=== PATIENT | male | born 1935 | race Caucasian/White ===

== ENCOUNTER → 2017-12-28 17:00 | Outpatient (REF) | payer SELFPAY ==
[2017-12-29 08:30] LABS: Bacteria 0 SEEN /hpf (None Seen); Mucous, Urine 0 SEEN /hpf (<or=2+); Red Blood Cells-Urine 0 SEEN /hpf (0-5)
[2017-12-29 09:08] LABS: Color, Urine Yellow (Yellow); Glucose, Dipstick Normal (Normal); Ketone-Dipstick Negative (Negative); Leukocyte Esterase-Dipstick 500 /ul (Negative); Nitrite-Dipstick Negative (Negative); Occult Blood-Urine Negative /ul (Negative); Protein-Dipstick Negative (Negative); Urine Bilirubin Dipstick Negative (Negative); Urine Clarity Clear (Clear); Urine Urobilinogen Normal (Normal); Urine pH 6.5 (5.0 - 8.0)
[2017-12-29 09:37] LABS: Squamous Epithelial Cells - UA 0-5 SEEN /hpf (0-5); White Blood Cells 0-5 SEEN /hpf (0-5)
== END ==
LOC: OLS.AVEB 17:00
PROVIDERS: Visit Provider Family Medicine
DX: N39.0 Urinary tract infection, site not specified (principal)
CPT/HCPCS: 81001; 87077; 87086; 87088

== ENCOUNTER → 2017-12-29 13:31 | Outpatient (CLI) | payer MEDICARE, OTHER, SELFPAY ==
--- NOTE | 2017-12-29 13:42 | VDLE_ITS ---
Reason For Study: Localized Edema RIGHT LEFT GSV is normal. CFV is compressible, spontaneous, phasic, Rt CFV, Rt FV, Rt PopV, Rt T/P Trunk, Rt competent, and demonstrates normal GastrocV, Rt PTV, and Rt PeroV are dilated augmentation. and non compressible consistent with acute DVT. Procedure Exam performed in department. Pt sent to ED per Dr. Scott. A preliminary report was called and/or faxed to Denisha Maloney RN. Interpretation Summary Acute deep vein thrombosis is noted in the right common femoral vein. Acute deep vein thrombosis is noted in the right femoral vein. Acute deep vein thrombosis is noted in the right popliteal vein. Acute deep vein thrombosis is noted in the right tibio-peroneal trunk. Acute deep vein thrombosis is noted in the right posterior tibial vein. Acute deep vein thrombosis is noted in the right peroneal vein. Acute deep vein thrombosis is noted in the right gastrocnemius vein. The right greater saphenous vein appears patent and compressible segmentally. Ordering Physician: Donte Scott Referring Physician: DOCTOR, OUT OF TOWN Performed By: Pari Montanez, RIZWANA, RVT
== END ==
DX: R60.0 Localized edema (principal); S72.21XA Displaced subtrochanteric fracture of right femur, initial encounter for closed fracture
CPT/HCPCS: 93971

== ENCOUNTER 2017-12-29 14:36 | Inpatient (IN) | payer MEDICARE, OTHER, SELFPAY ==
[2017-12-29] VITALS (7 sets, daily range): BP systolic 95–117; BP diastolic 61–72; PULSE 73–93; RESP 16–20; TEMP 36.4–37.2; O2SAT 95–99; BMI 27.8; BMI 28.5
--- NOTE | 2017-12-29 15:20 | ED.VISSUMM ---
- ER Visit Summary Date of Service: 12/29/17 Chief Complaint: Right leg swelling History of Present Illness: The patient is a 82 M status post right proximal femur fracture with orthopedic repair first week of October. That was done in [facility]. Last several weeks that he has had increasing swelling in his right lower leg intermittent discomfort. He had an ultrasound done earlier today here at [place] as an outpatient which showed right common femoral, right femoral, right popliteal, right gastric and other veins that were dilated consistent with a DVT. He denies any chest pain or shortness of breath. He is on Coumadin and has been long-term for history of A. fib. He denies any hemoptysis. Physical Examination: Elderly male no acute distress vital signs are stable. He is afebrile with a pulse ox 90% on room air no signs of hypoxia. H EENT exam is unremarkable. Neck nontender. Lungs coarse breath sounds bilaterally. No rales or rhonchi. Heart irregularly irregular rate about 90. Abdomen soft nontender. He is moving all 4 extremities. He has 1-2+ pitting edema in the right lower extremity. Dorsi and plantar flexion intact. Neurologically is awake and alert. He is following commands. Test Results: Patient has already had an outpatient noninvasive study of the right lower extremity which demonstrates an extensive DVT in spite of being on Coumadin therapy. White count of 6 H&H 10 and 33 which is his baseline anemia. Electrolytes unremarkable creatinine 0.9. Normal gap. He is currently on Coumadin his INR is 2.0. Emergency Department Course and Treatment: Screening labs to be obtained and then I will discuss the options since the patient has a DVT in spite of being on anticoagulation. Treatment Plan: I have already spoken to the hospitalist. In light that the patient has a large DVT and is still been on anticoagulation therapy I think he needs more aggressive therapy possibly vascular surgery consultation and discussion of whether they feel a filter placement would be necessary or beneficial or not. Disposition: Admission Impression: Acute extensive right lower extremity DVT History of A. fib on Coumadin Status post right proximal femur fracture with orthopedic repair This note was generated with [employer] dictation software. It may contain incorrect words, spelling, and punctuation that were not noted in review of the chart prior to signing ED Disposition - Plan for ED Patient: Chief Complaint: Lower Extremity Injury Referrals: [facility] Doctor,Out of [NON-STAFF] -
[2017-12-29 15:46] LABS: Absolute Lymphocyte Count 1.77 X10^3/ul (0.83-4.51); Absolute Neutrophil Count 3.9 X10^3/uL (2.0-7.7); Basophil# 0.01 X10^3/uL; Basophil% 0.2 % (0-1); Eosinophil# 0.15 X10^3/uL; Eosinophils% 2.3 % (0-5); Hematocrit 33.1 % (40-54); Hemoglobin 10.5 g/dl (13.0-16.5); Lymphocyte # 1.77 X10^3/ul (4.0); Lymphocyte % 27.1 % (19-41); Mean Corp Hgb Conc 31.7 g/gl (32-36); Mean Corpuscular Hgb 32.5 pg (27.0-32.0); Mean Corpuscular Volume 102.5 fL (80-94); Mean Platelet Vol. 8.8 fl (6.2-12.0); Monocyte# 0.73 X10^3/uL; Monocyte% 11.2 % (0-10); Neutrophil # 3.85 X10^3/uL (2.7-7.7); Neutrophil % 58.9 % (47-70); Platelet Count 203 K/mm3 (150-450); RBC Distribution Width CV 13.6 % (11.6-14.6); RBC Distribution Width SD 50.9 fl (35.1-43.9); Red Blood Count 3.23 M/mm3 (4.6-6.2); White Blood Count 6.5 K/mm3 (4.4-11.0)
[2017-12-29 15:47] LABS: POSITIVE COUNT NO; POSITIVE DIFFERENTIAL NO; POSITIVE MORPHOLOGY NO
[2017-12-29 15:59] LABS: Anion Gap 5 (5-15); BUN 16 mg/dL (7-18); BUN/Creat Ratio 17.8 RATIO (10-20); Calcium,Total 8.7 mg/dL (8.5-10.1); Chloride 102 mmol/L (98-107); EST Glomerular Filtration Rate 86 mL/min (>60); Est Glom Filt Rate - Afr Amer 104 mL/min (>60); Estimated Creatinine Clearance 70.65 ml/min; Glucose 123 mg/dL (74-106); Potassium 3.8 mmol/L (3.5-5.1); Sodium Level 140 mmol/L (136-145)
[2017-12-29 16:15] LABS: Prothrombin Time (Protime)PT. 22.8 SECONDS (11.7-14.9)
--- NOTE | 2017-12-29 17:35 | NURSING ---
report called back to care facility. chio Alexander was updated on pt.
[2017-12-29 18:31] LABS: Partial Thromboplast Time 39.9 Seconds (24.1-36.2)
--- NOTE | 2017-12-29 19:21 | PCM.HP.STD ---
Problem List (1) Right leg DVT Status: Acute Qualifiers: Affected thrombotic vein of extremity: femoral Chronicity: acute Qualified Code(s): I82.411 - Acute embolism and thrombosis of right femoral vein History of Present Illness Date of Admission: 12/29/17 Chief Complaint: right leg swelling 82 year old male with a h/o atrial fibrillation on chronic anticoagulation with warfarin who recently underwent ORIF for right proximal femoral fracture. Warfarin was held at the time perioperatively but resumed about 2 days afterwards. Patient was discharged to acute rehab but due to inability to participate in required therapy was discharged to a SNF. For about past 1-2 weeks swelling of the right leg has been noticed with associated discomfort and heaviness of the affected leg. Today had outpatient US which showed very extensive DVT from common femoral all the way down to the calf and leg veins. INR noted to be 2.0 and patient has been compliant with warfarin. Daughter who is in the room with patient has noticed patient not quite able to participate in therapy and unable to bear weight on the RLE. Patient denies any SOB or chest pain or dizziness Past Medical History Medical History: Medical History (Last Updated 12/29/17 @ 19:30 by Jose Peguero MD) Prostate cancer C61 Right femoral fracture S72.91XA Urinary incontinence R32 Allergies meloxicam Allergy (Verified 12/29/17 14:38) Other Home Medications: Ambulatory Orders Medication Instructions Recorded Albuterol IH (ProAir) [Proair Hfa] 2 inh INHALATION Q4H PRN PRN 12/29/17 Aspirin [Aspirin, Baby] 81 mg PO DAILY 12/29/17 Azelastine HCl [Astelin] 1 spray NASAL PRN PRN 12/29/17 Bumetanide [Bumex] 1 mg PO DAILY 12/29/17 Clotrimazole/Betamethasone 1 applic TOPICAL PRN PRN 12/29/17 [Lotrisone] Diltiazem [Cardizem] 60 mg PO BID 12/29/17 Docusate Sodium [Colace] 100 mg PO DAILY 12/29/17 Gabapentin [Neurontin] 100 mg PO TIDCM 12/29/17 Hydrocodone/Acetaminophen [[place] 1 each PO Q6H PRN PRN 12/29/17 10-325 Tablet] Lansoprazole [Lansoprazole] 30 mg PO DAILY 12/29/17 Melatonin/Pyridoxine HCl (B6) 1 tab PO QHS 12/29/17 [Melatonin 1 mg Tablet] Metformin HCl 500 mg PO DAILY 12/29/17 Metoprolol Tartrate [Lopressor 50 mg PO DAILY 12/29/17 (beta amna)] Omega3/Dha/Epa/Fish Oil/Vit D3 1 capsule PO DAILY 12/29/17 [Fish Oil-Vit D3 Softgel] Polyethylene Glycol 3350 [Miralax] 17 gm PO DAILY 12/29/17 Simvastatin [Zocor] 20 mg PO DAILY 12/29/17 Warfarin Sodium [Warfarin Sodium] 3 mg PO MOTUWETHFRSA 12/29/17 Warfarin Sodium [Warfarin Sodium] 4.5 mg PO ESPANA 12/29/17 Lives: With Family Smoking Status: Former smoker Tobacco Use: Cigars, Pipe Review of Systems Constitutional: Reports: Weakness, Fatigue. Denies: Anorexia, Malaise Eyes: Reports: Blurred vision, Double vision HEENT: Reports: Head Aches Cardiovascular: Reports: Edema. Denies: Chest Pain, Chest Pressure, Chest Tightness, Light Headedness Respiratory: Denies: Cough, Pleuritic Pain, Shortness of breath upon exertion Gastrointestinal: Denies: Abdominal Pain, Constipation Genitourinary: Reports: Frequency, Incontinence Musculoskeletal: Reports: Leg Pain Skin: Reports: Skin Changes - ecchymoses Neurological: Reports: Balance problems, - - Propensity for falls, slowness, occasional coarse resting tremors, shuffling gait Psychiatric: Denies: Anxiety Hematologic/ Lymphatic: Reports: Easy Bruising, Purpura. Denies: Adenopathy VTE Information - Inpt Only VTE Present on Admission: No Patient Problems: Active and Suspected Problems (Last Updated 12/29/17 @ 19:30 by Jose Peguero MD) Right leg DVT (Acute) - Physical Exam General: Alert, Oriented x3, Cooperative, No apparent distress, - - mask like facies HEENT: Atraumatic, Normocephalic Oral: Dry Mucosa Neck: Supple, No JVD Lungs: Clear to auscultation, Normal air movement, No rhonchi, No wheeze, No rales Cardiovascular: Regular rate, Regular Rhythm, Normal S1, Normal S2, No murmurs, No Ectopic Activity Abdomen: Soft, Non Tender, Non-Distended, No Hepato-splenomegaly Extremities: - - both LE with edema but right leg markedly so from foot all the way up to groin Skin: - - ecchymoses on UEs Lymphatic: No Cervical, Supraclavicular, or Inguinal Adenopathy Neurological: Cranial nerves II-XII grossly intact, - - psychomotor retardation, glabellar sign negative, tone increased in both UEs, R>L with mild cogwheeling R>L, mask like facies Psych/Mental Status: Flat Affect Vital Signs Temp Pulse Resp BP Pulse Ox 98.9 F 88 16 98/63 95 12/29/17 17:50 12/29/17 17:55 12/29/17 17:50 12/29/17 17:50 12/29/17 17:50 Oxygen Delivery Method Room Air Weight: 95.6 kg Body Mass Index (BMI) 28.5 Assessment/Plan All Active Problems (Last Updated 12/29/17 @ 19:30 by Jose Peguero MD) Right leg DVT (Acute) 1. Acute extensive right LE DVT despite being apparently adequately anticoagulated on warfarin. Risk factors - recent surgery to the same Rt femur and immobility following surgery. Will start on HBW and consult vascular surgery. May be a candidate for thrombectomy. 2. Suspect Parkinson's disease or Parkinson's plus syndrome. Features are subtle. May be the reason for patient not being able to participate in therapy. Will consult neurology to evaluate. 3. Atrial fibrillation. 4. recent severe delirium during recent hospitalization Code Visit Inpatient E&M: 48618 Init Hosp L3
[2017-12-29] MEDS: HYDROcodone Bitartrate/Apap 5/325 Tablet PO (19:27)
[2017-12-29] MEDS: Albuterol 2.5 MG/3 ML VIAL.NEB. INHALATION (20:10)
[2017-12-29] MEDS: Metoprolol Tartrate 50 MG Tablet PO (21:08)
[2017-12-29] MEDS: Atorvastatin Calcium 10 MG Tablet PO (21:08)
[2017-12-29] MEDS: dilTIAZem 60 MG Tablet PO (21:08)
[2017-12-30 01:28] LABS: Partial Thromboplast Time 206.6 Seconds (24.1-36.2)
--- NOTE | 2017-12-30 01:30 | NURSING ---
heparin drip off per protocol
[2017-12-30] MEDS: HYDROcodone Bitartrate/Apap 5/325 Tablet PO ×2 (02:43→21:26)
[2017-12-30 02:56] VITALS: BP 153/100; PULSE 91; RESP 20; TEMP 37; O2SAT 97
--- NOTE | 2017-12-30 05:43 | NURSING ---
PT BECOMING VERY ANXIOUS. URINE SMELLED STRONG. UA SENT. C/O SOUR STOMACH. MARISSA BEHZAD GIVEN.
[2017-12-30 06:08] LABS: Color, Urine Yellow (Yellow); Glucose, Dipstick Normal (Normal); Ketone-Dipstick 5 mg/dl (Negative); Leukocyte Esterase-Dipstick 500 /ul (Negative); Nitrite-Dipstick Negative (Negative); Occult Blood-Urine 10 /ul (Negative); Protein-Dipstick 15 mg/dl (Negative); Specific Gravity, Urine 1.015 (1.002-1.030); Urine Bilirubin Dipstick Negative (Negative); Urine Clarity Cloudy (Clear); Urine Urobilinogen 4 mg/dl (Normal); Urine pH 6.5 (5.0 - 8.0)
[2017-12-30 06:43] LABS: Mucous, Urine 0 SEEN /hpf (<or=2+); Red Blood Cells-Urine 0 SEEN /hpf (0-5); Squamous Epithelial Cells - UA 0 SEEN /hpf (0-5)
[2017-12-30 06:56] LABS: White Blood Cells 10-25 SEEN /hpf (0-5)
[2017-12-30 06:57] LABS: Bacteria 3+ /hpf (None Seen)
[2017-12-30 07:33] LABS: Absolute Lymphocyte Count 1.63 X10^3/ul (0.83-4.51); Absolute Neutrophil Count 4.5 X10^3/uL (2.0-7.7); Basophil# 0.03 X10^3/uL; Basophil% 0.4 % (0-1); Eosinophil# 0.07 X10^3/uL; Hematocrit 29.6 % (40-54); Hemoglobin 9.5 g/dl (13.0-16.5); Lymphocyte # 1.63 X10^3/ul (4.0); Lymphocyte % 24.2 % (19-41); Mean Corp Hgb Conc 32.1 g/gl (32-36); Mean Corpuscular Hgb 32.8 pg (27.0-32.0); Mean Corpuscular Volume 102.1 fL (80-94); Mean Platelet Vol. 8.9 fl (6.2-12.0); Monocyte% 7.4 % (0-10); Neutrophil # 4.49 X10^3/uL (2.7-7.7); Neutrophil % 66.7 % (47-70); POSITIVE COUNT NO; POSITIVE DIFFERENTIAL NO; POSITIVE MORPHOLOGY NO; Platelet Count 185 K/mm3 (150-450); RBC Distribution Width CV 13.3 % (11.6-14.6); White Blood Count 6.7 K/mm3 (4.4-11.0)
[2017-12-30 07:39] LABS: Anion Gap 4 (5-15); BUN 16 mg/dL (7-18); BUN/Creat Ratio 19.3 RATIO (10-20); Calcium,Total 8.3 mg/dL (8.5-10.1); Chloride 106 mmol/L (98-107); Creatinine, Serum 0.83 mg/dL (0.70-1.30); EST Glomerular Filtration Rate 94 mL/min (>60); Est Glom Filt Rate - Afr Amer 114 mL/min (>60); Estimated Creatinine Clearance 76.61 ml/min; Glucose 155 mg/dL (74-106); Potassium 3.6 mmol/L (3.5-5.1); Sodium Level 142 mmol/L (136-145)
[2017-12-30 07:40] LABS: Prothrombin Time (Protime)PT. 22.8 SECONDS (11.7-14.9)
--- NOTE | 2017-12-30 08:14 | NURSING ---
DR NAVAS ANSWERING SERVICE NOTIFIED THAT HE WAS CONSULTED BY DR FORD. PT HAS EXTENSIVE DVT.
[2017-12-30 08:48] VITALS: BP 114/80; PULSE 70; PULSE 85; RESP 20; TEMP 36.9; O2SAT 99
[2017-12-30] MEDS: 0.9% NaCl Peripheral Flush Adult/Peds IV (09:14)
[2017-12-30] MEDS: Ondansetron 4 MG/2 ML Vial IV (09:14)
[2017-12-30] MEDS: Bumetanide 0.5 MG Tablet 1 MG PO (09:15)
[2017-12-30 09:19] VITALS: PULSE 85
[2017-12-30] MEDS: Metoprolol Tartrate 50 MG Tablet PO ×2 (09:19→21:22)
[2017-12-30] MEDS: Gabapentin 100 MG Capsule PO ×3 (09:19→16:57)
[2017-12-30] MEDS: dilTIAZem 60 MG Tablet PO ×2 (09:20→21:22)
--- NOTE | 2017-12-30 09:30 | NURSING ---
called Lab talked w/ Ra as PTT still pending from 07:10
[2017-12-30 09:53] LABS: Partial Thromboplast Time 85.1 Seconds (24.1-36.2)
[2017-12-30] MEDS: Polyethylene Glycol 3350 17 GM PACKET PO (10:56)
[2017-12-30] MEDS: Pantoprazole Sodium 40 MG Tablet PO (10:57)
--- NOTE | 2017-12-30 12:01 | PCM.PN.HOSP ---
Patient Problems: Active and Suspected Problems (Last Updated 12/29/17 @ 19:30 by Jose Peguero MD) Right leg DVT (Acute) Subjective: 82 y/o male with a history of atrial fibrillation, on chronic anticoagulation, prostate cancer and recent right femoral fracture s/p ORIF. Coumadin was held at time of surgery preoperatively and resume 2 days afterwards. He was discharged to acute rehab was unable to partake in physical therapy. He was noted to have right lower extremity swelling for 1-2 weeks duration. He had outpatient ultrasound of the right lower extremity which revealed extensive DVT from common femoral down to the cough and neck veins. INR was noted to be 2 and patient has been compliant with Coumadin. Patient was admitted and is being managed for acute DVT of the right lower extremity likely provoked by surgery. He was started on heparin drip, coumadin is on hold, and vascular surgery has been consulted. Patient seen and examined. He had no complaints and did seem a little bit confused. He was however able to give answers when asked. Did not have any chest pain, shortness of breath, abdominal pain and he said the swelling in his lower extremity was the same. He did admit to having pain in his right lower extremity. Review of systems otherwise negative. Vitals reviewed. Vitals/I&O's: Vital Signs Temp Pulse Resp BP Pulse Ox 98.5 F 85 20 H 114/80 99 12/30/17 08:48 12/30/17 09:19 12/30/17 08:48 12/30/17 08:48 12/30/17 08:48 Oxygen Delivery Method Room Air Weight: 210 lb 12.191 oz Body Mass Index (BMI) 28.5 Intake and Output for Last 24 Hours 12/28/17 12/29/17 12/30/17 23:59 23:59 23:59 Intake Total 120 / 120 103 / 103 Output Total 150 / 150 Balance 120 / 120 -47 / -47 General: Alert, Oriented x3, Cooperative, No apparent distress HEENT: Atraumatic, PERRLA, EOMI, Normocephalic Oral: Moist Mucosa Neck: Supple, No JVD, Negative Carotid Bruits Lungs: Clear to auscultation, Normal air movement, No rhonchi, No wheeze, No rales Cardiovascular: Regular rate, Regular Rhythm, Normal S1, Normal S2, No murmurs Abdomen: Bowel Sounds Present, Soft, Non Tender, Non-Distended, No Hepato-splenomegaly Extremities: - - both LEs in STACEY hoses. RLE swollen, tender and warm to touch. Skin: No rashes, No breakdown Musculoskeletal: No Tenderness to Palpation of Joints or Extremities Lymphatic: No Cervical, Supraclavicular, or Inguinal Adenopathy Neurological: Cranial nerves II-XII grossly intact, Neuro grossly intact Psych/Mental Status: Normal Affect, Appropriate, - - alert and oriented to person and place Laboratory Results 12/30/17 01:04: APTT 206.6 H* 12/30/17 05:40: Urine Color Yellow, Urine Clarity Cloudy, Urine pH 6.5, Ur Specific [place] 1.015, Urine Protein 15 H, Urine Glucose (UA) Normal, Urine Ketones 5 H, Urine Occult Blood 10 H, Urine Nitrite Negative, Urine Bilirubin Negative, Urine Urobilinogen 4 H, Ur Leukocyte Esterase 500 H, Urine RBC 0 SEEN, Urine WBC 10-25 SEEN, Ur Squamous Epith Cells 0 SEEN, Urine Bacteria 3+, Urine Mucus 0 SEEN 12/30/17 05:40: Urine Color Cancelled, Urine Clarity Cancelled, Urine pH Cancelled, Ur Specific [place] Cancelled, U Specif Grav (Refrac) Cancelled, Urine Protein Cancelled, Urine Glucose (UA) Cancelled, Urine Ketones Cancelled, Urine Occult Blood Cancelled, Urine Nitrite Cancelled, Urine Bilirubin Cancelled, Urine Urobilinogen Cancelled, Ur Leukocyte Esterase Cancelled, Urine RBC Cancelled, Urine WBC Cancelled, Ur Squamous Epith Cells Cancelled, Ur Transition Epith Cell Cancelled, Ur Renal Epithelial Cell Cancelled, Calcium Oxalate Crystal Cancelled, Uric Acid Crystals Cancelled, Triple Phos Crystals Cancelled, Other Crystals Cancelled, Amorphous Sediment Cancelled, Urine Bacteria Cancelled, Hyaline Casts Cancelled, Fine Granular Casts Cancelled, Coarse Granular Casts Cancelled, Waxy Casts Cancelled, RBC Casts Cancelled, WBC Casts Cancelled, Urine Mucus Cancelled, Urine Trichomonas Cancelled, Urine Yeast Cancelled 12/30/17 07:10: APTT 85.1 H 12/30/17 07:10: WBC 6.7, RBC 2.90 L, Hgb 9.5 L, Hct 29.6 L, MCV 102.1 H, MCH 32.8 H, MCHC 32.1, RDW 13.3, RDW Differential 50.0 H, Plt Count 185, MPV 8.9, Immature Gran % (Auto) 0.300, Neut % (Auto) 66.7, Lymph % (Auto) 24.2, Gulf % (Auto) 7.4, Eos % (Auto) 1.0, Baso % (Auto) 0.4, Absolute Neuts (auto) 4.5, Absolute Lymphs (auto) 1.63, Total Counted Not Reportable 12/30/17 07:10: PT 22.8 H, INR 2.0 12/30/17 07:10: Sodium 142, Potassium 3.6, Chloride 106, Carbon Dioxide 32.0, Anion Gap 4 L, BUN 16, Creatinine 0.83, Estim Creat Clear Calc 76.61, Est GFR (MDRD) Af Amer 114, Est GFR (MDRD) Non-Af 94, BUN/Creatinine Ratio 19.3, Glucose 155 H, Calcium 8.3 L Current Medications Hydrocodone Bitart/Acetaminophen ([place] 5mg-325mg) 2 tablet PO Q6H PRN PRN Reason: PAIN Last Admin: 12/30/17 02:43 Dose: 2 tablet Albuterol Sulfate (Ventolin Aerosols) 2.5 mg INHALATION Q4H PRN PRN Reason: SOB &/OR WHEEZING Last Admin: 12/29/17 20:10 Dose: 2.5 mg Atorvastatin Calcium (Lipitor) 10 mg PO QHS [facility] Last Admin: 12/29/17 21:08 Dose: 10 mg Bumetanide (Bumex) 1 mg PO DAILY [facility] Last Admin: 12/30/17 09:15 Dose: 1 mg Diltiazem HCl (Cardizem) 60 mg PO BID [facility] Last Admin: 12/30/17 09:20 Dose: 60 mg Gabapentin (Neurontin) 100 mg PO TIDCM [facility] Last Admin: 12/30/17 09:19 Dose: 100 mg Heparin Sodium (Porcine) (Heparin Na) 0 unit IV UD PRN PRN Reason: Protocol Heparin Sodium/Sodium Chloride () 25,000 unit in 250 mls @ 14 mls/hr IV .[id number] [facility]; As Directed PRN Reason: Protocol Last Admin: 12/29/17 19:01 Dose: 14 mls/hr Magnesium Hydroxide (Milk Of Magnesia) 30 ml PO DAILY PRN PRN PRN Reason: Constipation Metformin HCl (Glucophage Xr) 500 mg PO DAILYCM [facility] Last Admin: 12/30/17 10:57 Dose: 500 mg Metoprolol Tartrate (Lopressor (Beta Dino)) 50 mg PO BID [facility] Last Admin: 12/30/17 09:19 Dose: 50 mg Nutritional Formula (Lactose Free) (Glucerna Shake) 120 ml PO 4X/DAY [facility] Ondansetron HCl (Zofran) 4 mg IV Q8H PRN PRN PRN Reason: NAUSEA/VOMITING Last Admin: 12/30/17 09:14 Dose: 4 mg Pantoprazole Sodium (Protonix) 40 mg PO DAILY [facility] Last Admin: 12/30/17 10:57 Dose: 40 mg Polyethylene Glycol (Miralax) 17 gm PO DAILY PRN PRN PRN Reason: Constipation Last Admin: 12/30/17 10:56 Dose: 17 gm Sodium Chloride () 5 - 30 ml IV UD PRN PRN Reason: SALINE FLUSH Last Admin: 12/30/17 09:14 Dose: 10 ml Medical Necessity - Tobacco Use Smoking Status: Former smoker Tobacco Use: Cigars, Pipe Assessment/Plan All Active Problems (Last Updated 12/29/17 @ 19:30 by Jose Peguero MD) Right leg DVT (Acute) 1. Acute provoked RLE DVT had DVT after recent surgery, despite being anticoagulated with warfarin, with therapeutic INR. currently on heparin drip likelihood of coumadin failure. Vascular surgery consulted; he may benefit from thrombectomy. Discussed with vascular surgery; even though there is a clear provoking factor, will do CT chest, abdomen and pelvis with delayed venous phase to rule out any malignancy will need to be started on Direct oral anticoagulants due to coumadin failure 2. Suspected Parkinsonian features: patient does seem to have a flat affect; has minimal tremors. Does seem to have memory impairment though. May have contributed to patient's inability to partake fully in PT. Discussed with neurology; patient can be followed up on outpatient basis. 3.Chronic Atrial fibrillation now on heparin drip for anticoagulation on metorolol and cardizem 4. Hyeprtension: on bumetanide and metoprolol 5. Hyperlipidemia: on statin. DVT prophylaxis: On heparin drip CODE STATUS: Full code This note was generated with [employer] software. It may contain incorrect words, spelling, and punctuation that were not noted in checking the note before signing. Code Visit Inpatient E&M: 22577 Subs Hosp L3
--- NOTE | 2017-12-30 12:06 | PN_ITS ---
Patient Problems: Active and Suspected Problems (Last Updated 12/29/17 @ 19:30 by Jose Peguero MD) Right leg DVT (Acute) Subjective: 82 y/o male with a history of atrial fibrillation, on chronic anticoagulation, prostate cancer and recent right femoral fracture s/p ORIF. Coumadin was held at time of surgery preoperatively and resume 2 days afterwards. He was discharged to acute rehab was unable to partake in physical therapy. He was noted to have right lower extremity swelling for 1-2 weeks duration. He had outpatient ultrasound of the right lower extremity which revealed extensive DVT from common femoral down to the cough and neck veins. INR was noted to be 2 and patient has been compliant with Coumadin. Patient was admitted and is being managed for acute DVT of the right lower extremity likely provoked by surgery. He was started on heparin drip, coumadin is on hold, and vascular surgery has been consulted. Patient seen and examined. He had no complaints and did seem a little bit confused. He was however able to give answers when asked. Did not have any chest pain, shortness of breath, abdominal pain and he said the swelling in his lower extremity was the same. He did admit to having pain in his right lower extremity. Review of systems otherwise negative. Vitals reviewed. Vitals/I&O's: Vital Signs Temp Pulse Resp BP Pulse Ox 98.5 F 85 20 H 114/80 99 12/30/17 08:48 12/30/17 09:19 12/30/17 08:48 12/30/17 08:48 12/30/17 08:48 Oxygen Delivery Method Room Air Weight: 210 lb 12.191 oz Body Mass Index (BMI) 28.5 Intake and Output for Last 24 Hours 12/28/17 12/29/17 12/30/17 23:59 23:59 23:59 Intake Total 120 / 120 103 / 103 Output Total 150 / 150 Balance 120 / 120 -47 / -47 General: Alert, Oriented x3, Cooperative, No apparent distress HEENT: Atraumatic, PERRLA, EOMI, Normocephalic Oral: Moist Mucosa Neck: Supple, No JVD, Negative Carotid Bruits Lungs: Clear to auscultation, Normal air movement, No rhonchi, No wheeze, No rales Cardiovascular: Regular rate, Regular Rhythm, Normal S1, Normal S2, No murmurs Abdomen: Bowel Sounds Present, Soft, Non Tender, Non-Distended, No Hepato- splenomegaly Extremities: - - both LEs in STACEY hoses. RLE swollen, tender and warm to touch. Skin: No rashes, No breakdown Musculoskeletal: No Tenderness to Palpation of Joints or Extremities Lymphatic: No Cervical, Supraclavicular, or Inguinal Adenopathy Neurological: Cranial nerves II-XII grossly intact, Neuro grossly intact Psych/Mental Status: Normal Affect, Appropriate, - - alert and oriented to person and place Laboratory Results 12/30/17 01:04: APTT 206.6 H* 12/30/17 05:40: Urine Color Yellow, Urine Clarity Cloudy, Urine pH 6.5, Ur Specific [place] 1.015, Urine Protein 15 H, Urine Glucose (UA) Normal, Urine Ketones 5 H, Urine Occult Blood 10 H, Urine Nitrite Negative, Urine Bilirubin Negative, Urine Urobilinogen 4 H, Ur Leukocyte Esterase 500 H, Urine RBC 0 SEEN , Urine WBC 10-25 SEEN, Ur Squamous Epith Cells 0 SEEN, Urine Bacteria 3+, Urine Mucus 0 SEEN 12/30/17 05:40: Urine Color Cancelled, Urine Clarity Cancelled, Urine pH Cancelled, Ur Specific [place] Cancelled, U Specif Grav (Refrac) Cancelled, Urine Protein Cancelled, Urine Glucose (UA) Cancelled, Urine Ketones Cancelled, Urine Occult Blood Cancelled, Urine Nitrite Cancelled, Urine Bilirubin Cancelled , Urine Urobilinogen Cancelled, Ur Leukocyte Esterase Cancelled, Urine RBC Cancelled, Urine WBC Cancelled, Ur Squamous Epith Cells Cancelled, Ur Transition Epith Cell Cancelled, Ur Renal Epithelial Cell Cancelled, Calcium Oxalate Crystal Cancelled, Uric Acid Crystals Cancelled, Triple Phos Crystals Cancelled, Other Crystals Cancelled, Amorphous Sediment Cancelled, Urine Bacteria Cancelled, Hyaline Casts Cancelled, Fine Granular Casts Cancelled, Coarse Granular Casts Cancelled, Waxy Casts Cancelled, RBC Casts Cancelled, WBC Casts Cancelled, Urine Mucus Cancelled, Urine Trichomonas Cancelled, Urine Yeast Cancelled 12/30/17 07:10: APTT 85.1 H 12/30/17 07:10: WBC 6.7, RBC 2.90 L, Hgb 9.5 L, Hct 29.6 L, MCV 102.1 H, MCH 32.8 H, MCHC 32.1, RDW 13.3, RDW Differential 50.0 H, Plt Count 185, MPV 8.9, Immature Gran % (Auto) 0.300, Neut % (Auto) 66.7, Lymph % (Auto) 24.2, [place] % ( Auto) 7.4, Eos % (Auto) 1.0, Baso % (Auto) 0.4, Absolute Neuts (auto) 4.5, Absolute Lymphs (auto) 1.63, Total Counted Not Reportable 12/30/17 07:10: PT 22.8 H, INR 2.0 12/30/17 07:10: Sodium 142, Potassium 3.6, Chloride 106, Carbon Dioxide 32.0, Anion Gap 4 L, BUN 16, Creatinine 0.83, Estim Creat Clear Calc 76.61, Est GFR ( MDRD) Af Amer 114, Est GFR (MDRD) Non-Af 94, BUN/Creatinine Ratio 19.3, Glucose 155 H, Calcium 8.3 L Current Medications Hydrocodone Bitart/Acetaminophen ([place] 5mg-325mg) 2 tablet PO Q6H PRN PRN Reason: PAIN Last Admin: 12/30/17 02:43 Dose: 2 tablet Albuterol Sulfate (Ventolin Aerosols) 2.5 mg INHALATION Q4H PRN PRN Reason: SOB &/OR WHEEZING Last Admin: 12/29/17 20:10 Dose: 2.5 mg Atorvastatin Calcium (Lipitor) 10 mg PO QHS [facility] Last Admin: 12/29/17 21:08 Dose: 10 mg Bumetanide (Bumex) 1 mg PO DAILY [facility] Last Admin: 12/30/17 09:15 Dose: 1 mg Diltiazem HCl (Cardizem) 60 mg PO BID [facility] Last Admin: 12/30/17 09:20 Dose: 60 mg Gabapentin (Neurontin) 100 mg PO TIDCM [facility] Last Admin: 12/30/17 09:19 Dose: 100 mg Heparin Sodium (Porcine) (Heparin Na) 0 unit IV UD PRN PRN Reason: Protocol Heparin Sodium/Sodium Chloride () 25,000 unit in 250 mls @ 14 mls/hr IV .[id number] [facility]; As Directed PRN Reason: Protocol Last Admin: 12/29/17 19:01 Dose: 14 mls/hr Magnesium Hydroxide (Milk Of Magnesia) 30 ml PO DAILY PRN PRN PRN Reason: Constipation Metformin HCl (Glucophage Xr) 500 mg PO DAILYCM [facility] Last Admin: 12/30/17 10:57 Dose: 500 mg Metoprolol Tartrate (Lopressor (Beta Dino)) 50 mg PO BID [facility] Last Admin: 12/30/17 09:19 Dose: 50 mg Nutritional Formula (Lactose Free) (Glucerna Shake) 120 ml PO 4X/DAY [facility] Ondansetron HCl (Zofran) 4 mg IV Q8H PRN PRN PRN Reason: NAUSEA/VOMITING Last Admin: 12/30/17 09:14 Dose: 4 mg Pantoprazole Sodium (Protonix) 40 mg PO DAILY [facility] Last Admin: 12/30/17 10:57 Dose: 40 mg Polyethylene Glycol (Miralax) 17 gm PO DAILY PRN PRN PRN Reason: Constipation Last Admin: 12/30/17 10:56 Dose: 17 gm Sodium Chloride () 5 - 30 ml IV UD PRN PRN Reason: SALINE FLUSH Last Admin: 12/30/17 09:14 Dose: 10 ml Medical Necessity - Tobacco Use Smoking Status: Former smoker Tobacco Use: Cigars, Pipe Assessment/Plan All Active Problems (Last Updated 12/29/17 @ 19:30 by Jose Peguero MD) Right leg DVT (Acute) 1. Acute provoked RLE DVT * had DVT after recent surgery, despite being anticoagulated with warfarin, with therapeutic INR. * currently on heparin drip * likelihood of coumadin failure. * Vascular surgery consulted; he may benefit from thrombectomy. Discussed with vascular surgery; even though there is a clear provoking factor, will do CT chest, abdomen and pelvis with delayed venous phase to rule out any malignancy * will need to be started on Direct oral anticoagulants due to coumadin failure * 2. Suspected Parkinsonian features: * patient does seem to have a flat affect; has minimal tremors. Does seem to have memory impairment though. * May have contributed to patient's inability to partake fully in PT. * Discussed with neurology; patient can be followed up on outpatient basis. * 3.Chronic Atrial fibrillation * now on heparin drip for anticoagulation * on metorolol and cardizem * 4. Hyeprtension: on bumetanide and metoprolol 5. Hyperlipidemia: on statin. DVT prophylaxis: On heparin drip CODE STATUS: Full code This note was generated with [employer] software. It may contain incorrect words, spelling, and punctuation that were not noted in checking the note before signing. Code Visit Inpatient E&M: 51062 Subs Hosp L3
[2017-12-30] MEDS: Glucerna Shake 120 ML LIQUID PO ×3 (13:12→21:22)
--- NOTE | 2017-12-30 14:55 | CASEMGMT ---
Social Work Note KJ met with pt as pt is from [facility] [place]. Pt confirms that he is from [facility]. Pt states that he wishes to discharge home when discharged from [facility]. Pt states that he has been at [facility] for about 2-3 months for rehabilitation. Pt states that his daughter lives with him in a one story home and there are two steps to enter the home. Pt states that his daughter is able and willing to help him at the home. Pt states that he has a walker and wheelchair at home. SW informed pt that this worker will check with pt once PT/OT evaluates pt to determine if going home will be a safe discharge for him. Pt states understanding and denied additional needs or concerns at this time. Pt gave this worker permission to call his daughter to confirm discharge plans. SW placed a call to pt's daughter Lubna. Lubna confirms that pt came from [facility] and the plan is for pt to return there at discharge as pt can't currently walk by himself. Lubna states that pt has been at [facility] [place] for rehabilitation. Lubna states that she told pt he can come home if he is able to get himself from his bed or wheelchair to the bathroom by himself. Lubna states that she works and is unable to care for pt at the level that he needs if he is unable to walk by himself. SW informed Lubna that this worker will continue to follow along with pt to confirm discharge plans. Lubna states understanding and denied additional needs or concerns at this time. KJ placed a call to Valeria at [facility] [place]. Valeria confirms that pt was at [facility] [place] for skilled and pt is able to return without needing a three midnight stay. Plan: TBD. Pt wishes to discharge home but may need to return to [facility] [place] for continued rehabilitation. Shani Palomares SITE LEAD, [employer] MACHINE OPERATOR
[2017-12-30 15:34] VITALS: BP 113/72; PULSE 72; RESP 17; TEMP 37; O2SAT 93
[2017-12-30 16:30] LABS: Partial Thromboplast Time 73.8 Seconds (24.1-36.2)
--- NOTE | 2017-12-30 18:06 | CON.PCM_ITS ---
Problem List (1) Right leg DVT Status: Acute Qualifiers: Affected thrombotic vein of extremity: femoral Chronicity: acute Qualified Code(s): I82.411 - Acute embolism and thrombosis of right femoral vein Reason for Consult Date of Consultation: 12/30/17 Reason for Consultation: Extensive right lower extremity DVT History of Present Illness: The patient is a 82 year old M who had a fall in October 2017. I had a right femur fracture. He had this repaired at [facility] [place]. He was on Coumadin for A. fib. He was sounds like given plasma before to reverse his Coumadin. In a couple days after the operation was restarted back on his Coumadin. Probably had about a week where he was not fully anticoagulated. He now is on the Coumadin his last INR was 2. None of this testing was done here so do not know if he had any episodes where he was subtherapeutic. He has been having some swelling for a couple weeks. He has been fairly weak and been unable to really do his therapy and had switched to a little bit of a more of a stepdown area until he can increase some of his therapy. He has some improvement at first but the edema is a little bit worse at this point. He saw his orthopedic yesterday and talked about some increase in swelling and a little bit difficulty with increasing strength and is suggested to get a ultrasound. They got this ultrasound was and was brought to the emergency room is been admitted in. Difficult to say if he is actually a Coumadin failure not knowing all his levels and for how long he was around the time of surgery subtherapeutic. I would suspect at least a week and so may be not exactly Coumadin failure. Of note patient with a history of prostate cancer did have radiation seeds. No prior history of DVT that reported. [] Past Medical History Medical History: Medical History (Last Updated 12/29/17 @ 19:30 by Jose Peguero MD) Prostate cancer C61 Right femoral fracture S72.91XA Urinary incontinence R32 Allergies meloxicam Allergy (Verified 12/29/17 14:38) Other Home Medications: Ambulatory Orders Medication Instructions Recorded Albuterol IH (ProAir) [Proair Hfa] 2 inh INHALATION Q4H PRN PRN 12/29/17 Aspirin [Aspirin, Baby] 81 mg PO DAILY 12/29/17 Azelastine HCl [Astelin] 1 spray NASAL PRN PRN 12/29/17 Bumetanide [Bumex] 1 mg PO DAILY 12/29/17 Clotrimazole/Betamethasone 1 applic TOPICAL PRN PRN 12/29/17 [Lotrisone] Diltiazem [Cardizem] 60 mg PO BID 12/29/17 Docusate Sodium [Colace] 100 mg PO DAILY 12/29/17 Gabapentin [Neurontin] 100 mg PO TIDCM 12/29/17 Hydrocodone/Acetaminophen [[place] 1 each PO Q6H PRN PRN 12/29/17 10-325 Tablet] Lansoprazole [Lansoprazole] 30 mg PO DAILY 12/29/17 Melatonin/Pyridoxine HCl (B6) 1 tab PO QHS 12/29/17 [Melatonin 1 mg Tablet] Metformin HCl 500 mg PO DAILY 12/29/17 Metoprolol Tartrate [Lopressor 50 mg PO BID 12/29/17 (beta amna)] Omega3/Dha/Epa/Fish Oil/Vit D3 1 capsule PO DAILY 12/29/17 [Fish Oil-Vit D3 Softgel] Polyethylene Glycol 3350 [Miralax] 17 gm PO DAILY 12/29/17 Simvastatin [Zocor] 20 mg PO DAILY 12/29/17 Warfarin Sodium [Warfarin Sodium] 3 mg PO MOTUWETHFRSA 12/29/17 Warfarin Sodium [Warfarin Sodium] 4.5 mg PO ESPANA 12/29/17 Lives: With Family Smoking Status: Former smoker Tobacco Use: Cigars, Pipe Review of Systems Constitutional: Denies: Chills, Fever, Weight Change HEENT: Reports: Difficulty Hearing Cardiovascular: Denies: Chest Pain, Palpitations Respiratory: Denies: Cough, Shortness of breath at rest, Sputum production Gastrointestinal: Denies: Abdominal Pain, Nausea, Vomiting Genitourinary: Denies: Dysuria Patient Problems: Active and Suspected Problems (Last Updated 12/29/17 @ 19:30 by Jose Peguero MD) Right leg DVT (Acute) - Physical Exam General: Alert, Oriented x3, Cooperative HEENT: Atraumatic, PERRLA, EOMI, Normocephalic Neck: No JVD Lungs: Clear to auscultation Cardiovascular: Irregular Rate Abdomen: Soft, Non Tender Extremities: - - Right leg pitting edema Vital Signs Temp Pulse Resp BP Pulse Ox 98.6 F 72 17 113/72 93 12/30/17 15:34 12/30/17 15:34 12/30/17 15:34 12/30/17 15:34 12/30/17 15:34 Oxygen Delivery Method Room Air Weight: 210 lb 12.191 oz Body Mass Index (BMI) 28.5 Intake and Output for Last 24 Hours 12/28/17 12/29/17 12/30/17 23:59 23:59 23:59 Intake Total 120 / 120 631.3 / 631.3 Output Total 400 / 400 Balance 120 / 120 231.3 / 231.3 Laboratory Tests Past 24 Hrs 12/30/17 12/30/17 12/30/17 01:04 05:40 05:40 WBC RBC Hgb Hct MCV MCH MCHC RDW RDW Differential Plt Count MPV Immature Gran % (Auto) Neut % (Auto) Lymph % (Auto) [place] % (Auto) Eos % (Auto) Baso % (Auto) Absolute Neuts (auto) Absolute Lymphs (auto) Total Counted PT INR APTT 206.6 H* Sodium Potassium Chloride Carbon Dioxide Anion Gap BUN Creatinine Estim Creat Clear Calc Est GFR (MDRD) Af Amer Est GFR (MDRD) Non-Af BUN/Creatinine Ratio Glucose Calcium Urine Color Yellow Cancelled Urine Clarity Cloudy Cancelled Urine pH 6.5 Cancelled Ur Specific [place] 1.015 Cancelled U Specif Grav (Refrac) Cancelled Urine Protein 15 H Cancelled Urine Glucose (UA) Normal Cancelled Urine Ketones 5 H Cancelled Urine Occult Blood 10 H Cancelled Urine Nitrite Negative Cancelled Urine Bilirubin Negative Cancelled Urine Urobilinogen 4 H Cancelled Ur Leukocyte Esterase 500 H Cancelled Urine RBC 0 SEEN Cancelled Urine WBC 10-25 SEEN Cancelled Ur Squamous Epith Cells 0 SEEN Cancelled Ur Transition Epith Cell Cancelled Ur Renal Epithelial Cell Cancelled Calcium Oxalate Crystal Cancelled Uric Acid Crystals Cancelled Triple Phos Crystals Cancelled Other Crystals Cancelled Amorphous Sediment Cancelled Urine Bacteria 3+ Cancelled Hyaline Casts Cancelled Fine Granular Casts Cancelled Coarse Granular Casts Cancelled Waxy Casts Cancelled RBC Casts Cancelled WBC Casts Cancelled Urine Mucus 0 SEEN Cancelled Urine Trichomonas Cancelled Urine Yeast Cancelled 12/30/17 12/30/17 12/30/17 07:10 07:10 07:10 WBC 6.7 RBC 2.90 L Hgb 9.5 L Hct 29.6 L MCV 102.1 H MCH 32.8 H MCHC 32.1 RDW 13.3 RDW Differential 50.0 H Plt Count 185 MPV 8.9 Immature Gran % (Auto) 0.300 Neut % (Auto) 66.7 Lymph % (Auto) 24.2 [place] % (Auto) 7.4 Eos % (Auto) 1.0 Baso % (Auto) 0.4 Absolute Neuts (auto) 4.5 Absolute Lymphs (auto) 1.63 Total Counted Not Reportable PT 22.8 H INR 2.0 APTT 85.1 H Sodium Potassium Chloride Carbon Dioxide Anion Gap BUN Creatinine Estim Creat Clear Calc Est GFR (MDRD) Af Amer Est GFR (MDRD) Non-Af BUN/Creatinine Ratio Glucose Calcium Urine Color Urine Clarity Urine pH Ur Specific [place] U Specif Grav (Refrac) Urine Protein Urine Glucose (UA) Urine Ketones Urine Occult Blood Urine Nitrite Urine Bilirubin Urine Urobilinogen Ur Leukocyte Esterase Urine RBC Urine WBC Ur Squamous Epith Cells Ur Transition Epith Cell Ur Renal Epithelial Cell Calcium Oxalate Crystal Uric Acid Crystals Triple Phos Crystals Other Crystals Amorphous Sediment Urine Bacteria Hyaline Casts Fine Granular Casts Coarse Granular Casts Waxy Casts RBC Casts WBC Casts Urine Mucus Urine Trichomonas Urine Yeast 12/30/17 12/30/17 07:10 15:50 WBC RBC Hgb Hct MCV MCH MCHC RDW RDW Differential Plt Count MPV Immature Gran % (Auto) Neut % (Auto) Lymph % (Auto) [place] % (Auto) Eos % (Auto) Baso % (Auto) Absolute Neuts (auto) Absolute Lymphs (auto) Total Counted PT INR APTT 73.8 H Sodium 142 Potassium 3.6 Chloride 106 Carbon Dioxide 32.0 Anion Gap 4 L BUN 16 Creatinine 0.83 Estim Creat Clear Calc 76.61 Est GFR (MDRD) Af Amer 114 Est GFR (MDRD) Non-Af 94 BUN/Creatinine Ratio 19.3 Glucose 155 H Calcium 8.3 L Urine Color Urine Clarity Urine pH Ur Specific [place] U Specif Grav (Refrac) Urine Protein Urine Glucose (UA) Urine Ketones Urine Occult Blood Urine Nitrite Urine Bilirubin Urine Urobilinogen Ur Leukocyte Esterase Urine RBC Urine WBC Ur Squamous Epith Cells Ur Transition Epith Cell Ur Renal Epithelial Cell Calcium Oxalate Crystal Uric Acid Crystals Triple Phos Crystals Other Crystals Amorphous Sediment Urine Bacteria Hyaline Casts Fine Granular Casts Coarse Granular Casts Waxy Casts RBC Casts WBC Casts Urine Mucus Urine Trichomonas Urine Yeast Assessment/Plan All Active Problems (Last Updated 12/29/17 @ 19:30 by Jose Peguero MD) Right leg DVT (Acute) #1. DVT. Again difficult to determine exactly how long he was sub-. Therapeutic around the time of the surgery sounds like he was given plasma to reverse this and 2 days later started back on his Coumadin. Does not sound like he was given Lovenox during this. So probably was a week or so without being anticoagulated. Significant fracture and some bleeding and muscle injury as he still having some weakness recovering. Which might contribute to developing a DVT. Also with some previous radiation seeds from his prostate. He is not a good thrombolytic candidate at this point. And I do not know if you can necessarily say he is a Coumadin failure. Although would not be unreasonable to switch him to a separate oral agent but if this is cost prohibitive I think he still okay to be on Coumadin maybe try to keep him a little bit closer to 2.5. He also needs daily compression stockings thigh-high 20-30 mmHg. I will check a CAT scan chest abdomen pelvis to see if there is anything else contributing to the reason of his clot. At this point I will see him back in 6 weeks with a repeat right leg venous ultrasound. We will follow along if anything else changes during the course.
--- NOTE | 2017-12-30 18:54 | CT_ITS ---
STUDY: CT CHEST WITH CONTRAST REASON FOR EXAM: Male, 82 years old. Known DVT, chest pain RADIATION DOSAGE (If Supplied By Facility): CTDIvol = ( 26.09 ) mGy, DLP = ( 3431.24 ) mGycm TECHNIQUE: Transaxial imaging was performed following intravenous administration of 100 ml of Isovue 300 contrast material. Sagittal and coronal reconstructions were performed. Individualized dose optimization techniques were used for this CT. COMPARISON: None. FINDINGS: There is minimal biapical scarring. There are coarse markings in the anterior segment of the right upper lobe and in the posterior segments of both lower lobes. There is no demonstrated pleural abnormality. There is mild cardiac enlargement. There are calcifications of the coronary arteries. The mediastinum is unremarkable. The hilar regions are unremarkable. The pulmonary arteries are unremarkable. There are minimal vascular calcifications in the thoracic aorta. There are moderate degenerative changes in the visualized spine. The upper abdomen is dictated separately. CT/Chest WITH Contrast IMPRESSION: There are no acute abnormalities in the chest. There is marked motion artifact which precludes adequate visualization of the lungs. There is evidence of minimal atelectasis in the posterior segments of both lower lobes and anterior segment of the right upper lobe. There is no obvious consolidation. There is no pleural effusion or significant lymphadenopathy. There is no evidence of pulmonary embolism in the main pulmonary arteries. There is mild cardiomegaly. Electronically Signed: Ruchi Robles MD at 20:32 EDT Tel Direct: [phone], Service support ,
--- NOTE | 2017-12-30 18:54 | CT_ITS ---
STUDY: CT ABDOMEN AND PELVIS WITH CONTRAST REASON FOR EXAM: Male, 82 years old. Abdominal pain, known DVT RADIATION DOSAGE (If Supplied By Facility): CTDIvol = ( 26.09 ) mGy, DLP = ( 3431.24 ) mGycm TECHNIQUE: Transaxial images were obtained from the lower chest to the upper thighs without oral contrast. 100 ml of Isovue 300 contrast was administered. Sagittal and coronal images were reconstructed. Individualized dose optimization techniques were used for this CT. COMPARISON: None. FINDINGS: The lower chest is dictated separately. There is a 7 mm hypodensity in the right lobe of the liver which is too small to characterize, possible cyst. The gallbladder and biliary system are unremarkable. The spleen is unremarkable. The pancreas is unremarkable. The adrenal glands are unremarkable. The right kidney is unremarkable. There is no dilatation of the collecting system in the right kidney. There is a 2.8 cm cyst in the lower pole of the left kidney. There is no dilatation of the collecting system in the left kidney. The stomach is unremarkable. The small bowel is unremarkable. There are diverticula in the distal colon without adjacent stranding. The appendix is visualized and appears normal. There are moderate vascular calcifications. The inferior vena cava is unremarkable. The retroperitoneum is unremarkable. There is no free fluid in the abdomen. The urinary bladder is markedly small with marked wall thickening. A normal prostate is not visualized and may be surgically absent. There is stranding in the subcutaneous fat of the upper right leg. There are marked degenerative changes in the visualized spine. There is moderate decreased height of L1 with a fracture line posteriorly. There is minimal retropulsion of bone at this level. There is hardware in the proximal right femur after fracture fixation. The lesser trochanter is displaced. CT/Abdomen/Pelvis W IV Cont ONLY IMPRESSION: There are no acute bowel abnormalities. There is diverticulosis of the distal colon. There is no ascites, free air or significant lymphadenopathy. The urinary bladder is small and decompressed with marked wall thickening. Cystitis cannot be excluded. There is inflammation in the upper right leg after right femur surgery. Hardware is present in the proximal right femur. There is marked displacement of the lesser trochanter, and a metastatic lesion in this location cannot be excluded. There is a moderate compression fracture of L1 which appears acute or subacute. There is minimal retropulsion of bone at this level without significant canal narrowing. Electronically Signed: Ruchi Robles MD at 21:22 EDT Tel Direct: [phone], Service support ,
[2017-12-30 19:52] VITALS: BP 123/91; PULSE 87; RESP 18; TEMP 36.8; O2SAT 97
[2017-12-30 21:22] VITALS: PULSE 88
[2017-12-30] MEDS: Atorvastatin Calcium 10 MG Tablet PO (21:22)
[2017-12-31 03:00] VITALS: BP 98/63; PULSE 63; RESP 18; TEMP 36.4; O2SAT 96
[2017-12-31 05:26] LABS: Absolute Lymphocyte Count 2.69 X10^3/ul (0.83-4.51); Absolute Neutrophil Count 3.6 X10^3/uL (2.0-7.7); Basophil# 0.04 X10^3/uL; Basophil% 0.6 % (0-1); Eosinophil# 0.14 X10^3/uL; Eosinophils% 1.9 % (0-5); Hematocrit 31.1 % (40-54); Hemoglobin 9.7 g/dl (13.0-16.5); Lymphocyte # 2.69 X10^3/ul (4.0); Lymphocyte % 37.4 % (19-41); Mean Corp Hgb Conc 31.2 g/gl (32-36); Mean Corpuscular Hgb 32.6 pg (27.0-32.0); Mean Corpuscular Volume 104.4 fL (80-94); Monocyte# 0.74 X10^3/uL; Monocyte% 10.3 % (0-10); Neutrophil # 3.56 X10^3/uL (2.7-7.7); Neutrophil % 49.4 % (47-70); Platelet Count 214 K/mm3 (150-450); RBC Distribution Width CV 12.9 % (11.6-14.6); RBC Distribution Width SD 47.8 fl (35.1-43.9); Red Blood Count 2.98 M/mm3 (4.6-6.2); White Blood Count 7.2 K/mm3 (4.4-11.0)
[2017-12-31 05:28] LABS: POSITIVE COUNT NO; POSITIVE DIFFERENTIAL NO; POSITIVE MORPHOLOGY NO
[2017-12-31 05:33] LABS: Partial Thromboplast Time 77.1 Seconds (24.1-36.2)
[2017-12-31 05:44] LABS: Anion Gap 7 (5-15); BUN 16 mg/dL (7-18); BUN/Creat Ratio 19.8 RATIO (10-20); Calcium,Total 8.4 mg/dL (8.5-10.1); Chloride 106 mmol/L (98-107); Creatinine, Serum 0.81 mg/dL (0.70-1.30); EST Glomerular Filtration Rate 97 mL/min (>60); Est Glom Filt Rate - Afr Amer 118 mL/min (>60); Glucose 97 mg/dL (74-106); Sodium Level 144 mmol/L (136-145)
[2017-12-31 08:32] VITALS: PULSE 90
[2017-12-31] MEDS: Polyethylene Glycol 3350 17 GM PACKET PO (08:41)
[2017-12-31] MEDS: Pantoprazole Sodium 40 MG Tablet PO (08:42)
[2017-12-31] MEDS: dilTIAZem 60 MG Tablet PO (08:42)
[2017-12-31] MEDS: Gabapentin 100 MG Capsule PO ×2 (08:42→11:25)
[2017-12-31] MEDS: Bumetanide 0.5 MG Tablet 1 MG PO (08:42)
[2017-12-31] MEDS: 0.9% Normal Saline 1,000 ML 75 ML IV (08:43)
[2017-12-31] MEDS: Glucerna Shake 120 ML LIQUID PO ×2 (08:47→14:35)
[2017-12-31 08:59] VITALS: BP 93/69; PULSE 89; RESP 18; TEMP 36.8; O2SAT 95
--- NOTE | 2017-12-31 11:02 | CASEMGMT ---
Social Work Note SW met with pt to confirm discharge plans. Pt is currently Mod to Max assist x2 for transfers, bed mobility, pivot and walking 3 ft. SW informed pt of this. SW informed pt that this worker spoke with his daughter and his daughter would like pt to return to [facility] as she works and is unable to care for pt at the level of care pt needs. Pt states understanding. Pt is agreeable to returning to [facility] at discharge for rehabilitation. Per previous conversation with Valeria pt has Medicare days and pt is able to return when medically cleared. Plan: Pt to return to [facility] for rehabilitation Shani Palomares RIPSAW MATCHER, LEAD IOS DEVELOPER
[2017-12-31 11:25] VITALS: BP 90/60; PULSE 81
[2017-12-31] MEDS: Metoprolol Tartrate 50 MG Tablet PO (11:25)
--- NOTE | 2017-12-31 12:41 | PCM.TXEXTCAR ---
- Routine Orders/Code Status Enema Type: Fleetz Enema Frequency: Daily PRN Suppository Type: Dulcolax 10mg Suppository Frequency: Daily PRN O2 Frequency: PRN Keep PO Greater than or Equal to (%): 92 Code Status: Full Code - Wound(s) BILAT KNEES Wound Type: Abrasion - Therapies Weight Bearing: Weight bearing as tolerated Extremity Affected:: Bilateral Lower Physical Therapy: Eval and Treat Occupational Therapy: Eval and Treat - Allergies/Procedures Done in Hospital Allergies/Adverse Reactions: Allergies meloxicam Allergy (Verified 12/29/17 14:38) Other - Type of Care/Length of Stay Estimated LOS: More Than 30 Days Type of Care Needed: Skilled Rehab Potential: Fair Prognosis: Fair - Additional Orders/Day of Discharge Additional Orders: apply 20mmHg compression stockings to both LEs daily. Apply thigh high STACEY Hose stockings daily H&P will serve as current which was dated: 12/29/17 Day of Discharge: 12/31/17 - Dietary and Speech Recommendations Dietitian Recommendations/Changes: Continue on regular diet. Would benefit from cardiac, calorie controlled 2000 diet when PO intake improves. - Follow Up Care Primary Care Physician: Joaquin Doctor,Out of [NON-STAFF] - Please follow up with your Primary Care Physician in: one week Please Follow Up With: Curtis Bridges MD When: 4-6 weeks
--- NOTE | 2017-12-31 12:45 | PCM.DC.SUM ---
Discharge Date and Diagnosis Date of Admission: 12/29/17 Date of Discharge: 12/31/17 - Primary Discharge Diagnosis Active and Suspected Problems (Last Updated 12/29/17 @ 19:30 by Jose Peguero MD) Right leg DVT (Acute) Hospital Course and Treatment Imaging Results: Laboratory Tests 12/29/17 12/29/17 12/29/17 15:38 15:38 15:38 WBC 6.5 RBC 3.23 L Hgb 10.5 L Hct 33.1 L MCV 102.5 H MCH 32.5 H MCHC 31.7 L RDW 13.6 RDW Differential 50.9 H Plt Count 203 MPV 8.8 Immature Gran % (Auto) 0.300 Neut % (Auto) 58.9 Lymph % (Auto) 27.1 [place] % (Auto) 11.2 H Eos % (Auto) 2.3 Baso % (Auto) 0.2 Absolute Neuts (auto) 3.9 Absolute Lymphs (auto) 1.77 Total Counted Not Reportable PT 22.8 H INR 2.0 APTT Sodium 140 Potassium 3.8 Chloride 102 Carbon Dioxide 33.0 H Anion Gap 5 BUN 16 Creatinine 0.90 Estim Creat Clear Calc 70.65 Est GFR (MDRD) Af Amer 104 Est GFR (MDRD) Non-Af 86 BUN/Creatinine Ratio 17.8 Glucose 123 H Calcium 8.7 Urine Color Urine Clarity Urine pH Ur Specific [place] U Specif Grav (Refrac) Urine Protein Urine Glucose (UA) Urine Ketones Urine Occult Blood Urine Nitrite Urine Bilirubin Urine Urobilinogen Ur Leukocyte Esterase Urine RBC Urine WBC Ur Squamous Epith Cells Ur Transition Epith Cell Ur Renal Epithelial Cell Calcium Oxalate Crystal Uric Acid Crystals Triple Phos Crystals Other Crystals Amorphous Sediment Urine Bacteria Hyaline Casts Fine Granular Casts Coarse Granular Casts Waxy Casts RBC Casts WBC Casts Urine Mucus Urine Trichomonas Urine Yeast 12/29/17 12/30/17 12/30/17 15:38 01:04 05:40 WBC RBC Hgb Hct MCV MCH MCHC RDW RDW Differential Plt Count MPV Immature Gran % (Auto) Neut % (Auto) Lymph % (Auto) [place] % (Auto) Eos % (Auto) Baso % (Auto) Absolute Neuts (auto) Absolute Lymphs (auto) Total Counted PT INR APTT 39.9 H 206.6 H* Sodium Potassium Chloride Carbon Dioxide Anion Gap BUN Creatinine Estim Creat Clear Calc Est GFR (MDRD) Af Amer Est GFR (MDRD) Non-Af BUN/Creatinine Ratio Glucose Calcium Urine Color Yellow Urine Clarity Cloudy Urine pH 6.5 Ur Specific [place] 1.015 U Specif Grav (Refrac) Urine Protein 15 H Urine Glucose (UA) Normal Urine Ketones 5 H Urine Occult Blood 10 H Urine Nitrite Negative Urine Bilirubin Negative Urine Urobilinogen 4 H Ur Leukocyte Esterase 500 H Urine RBC 0 SEEN Urine WBC 10-25 SEEN Ur Squamous Epith Cells 0 SEEN Ur Transition Epith Cell Ur Renal Epithelial Cell Calcium Oxalate Crystal Uric Acid Crystals Triple Phos Crystals Other Crystals Amorphous Sediment Urine Bacteria 3+ Hyaline Casts Fine Granular Casts Coarse Granular Casts Waxy Casts RBC Casts WBC Casts Urine Mucus 0 SEEN Urine Trichomonas Urine Yeast 12/30/17 12/30/17 12/30/17 05:40 07:10 07:10 WBC 6.7 RBC 2.90 L Hgb 9.5 L Hct 29.6 L MCV 102.1 H MCH 32.8 H MCHC 32.1 RDW 13.3 RDW Differential 50.0 H Plt Count 185 MPV 8.9 Immature Gran % (Auto) 0.300 Neut % (Auto) 66.7 Lymph % (Auto) 24.2 [place] % (Auto) 7.4 Eos % (Auto) 1.0 Baso % (Auto) 0.4 Absolute Neuts (auto) 4.5 Absolute Lymphs (auto) 1.63 Total Counted Not Reportable PT INR APTT 85.1 H Sodium Potassium Chloride Carbon Dioxide Anion Gap BUN Creatinine Estim Creat Clear Calc Est GFR (MDRD) Af Amer Est GFR (MDRD) Non-Af BUN/Creatinine Ratio Glucose Calcium Urine Color Cancelled Urine Clarity Cancelled Urine pH Cancelled Ur Specific [place] Cancelled U Specif Grav (Refrac) Cancelled Urine Protein Cancelled Urine Glucose (UA) Cancelled Urine Ketones Cancelled Urine Occult Blood Cancelled Urine Nitrite Cancelled Urine Bilirubin Cancelled Urine Urobilinogen Cancelled Ur Leukocyte Esterase Cancelled Urine RBC Cancelled Urine WBC Cancelled Ur Squamous Epith Cells Cancelled Ur Transition Epith Cell Cancelled Ur Renal Epithelial Cell Cancelled Calcium Oxalate Crystal Cancelled Uric Acid Crystals Cancelled Triple Phos Crystals Cancelled Other Crystals Cancelled Amorphous Sediment Cancelled Urine Bacteria Cancelled Hyaline Casts Cancelled Fine Granular Casts Cancelled Coarse Granular Casts Cancelled Waxy Casts Cancelled RBC Casts Cancelled WBC Casts Cancelled Urine Mucus Cancelled Urine Trichomonas Cancelled Urine Yeast Cancelled 12/30/17 12/30/17 12/30/17 07:10 07:10 15:50 WBC RBC Hgb Hct MCV MCH MCHC RDW RDW Differential Plt Count MPV Immature Gran % (Auto) Neut % (Auto) Lymph % (Auto) [place] % (Auto) Eos % (Auto) Baso % (Auto) Absolute Neuts (auto) Absolute Lymphs (auto) Total Counted PT 22.8 H INR 2.0 APTT 73.8 H Sodium 142 Potassium 3.6 Chloride 106 Carbon Dioxide 32.0 Anion Gap 4 L BUN 16 Creatinine 0.83 Estim Creat Clear Calc 76.61 Est GFR (MDRD) Af Amer 114 Est GFR (MDRD) Non-Af 94 BUN/Creatinine Ratio 19.3 Glucose 155 H Calcium 8.3 L Urine Color Urine Clarity Urine pH Ur Specific [place] U Specif Grav (Refrac) Urine Protein Urine Glucose (UA) Urine Ketones Urine Occult Blood Urine Nitrite Urine Bilirubin Urine Urobilinogen Ur Leukocyte Esterase Urine RBC Urine WBC Ur Squamous Epith Cells Ur Transition Epith Cell Ur Renal Epithelial Cell Calcium Oxalate Crystal Uric Acid Crystals Triple Phos Crystals Other Crystals Amorphous Sediment Urine Bacteria Hyaline Casts Fine Granular Casts Coarse Granular Casts Waxy Casts RBC Casts WBC Casts Urine Mucus Urine Trichomonas Urine Yeast 12/30/17 12/31/17 12/31/17 22:47 05:18 05:18 WBC 7.2 RBC 2.98 L Hgb 9.7 L Hct 31.1 L MCV 104.4 H MCH 32.6 H MCHC 31.2 L RDW 12.9 RDW Differential 47.8 H Plt Count 214 MPV 9.0 Immature Gran % (Auto) 0.400 Neut % (Auto) 49.4 Lymph % (Auto) 37.4 [place] % (Auto) 10.3 H Eos % (Auto) 1.9 Baso % (Auto) 0.6 Absolute Neuts (auto) 3.6 Absolute Lymphs (auto) 2.69 Total Counted Not Reportable PT INR APTT 83.0 H Sodium 144 Potassium 4.0 Chloride 106 Carbon Dioxide 31.0 Anion Gap 7 BUN 16 Creatinine 0.81 Estim Creat Clear Calc 78.50 Est GFR (MDRD) Af Amer 118 Est GFR (MDRD) Non-Af 97 BUN/Creatinine Ratio 19.8 Glucose 97 Calcium 8.4 L Urine Color Urine Clarity Urine pH Ur Specific [place] U Specif Grav (Refrac) Urine Protein Urine Glucose (UA) Urine Ketones Urine Occult Blood Urine Nitrite Urine Bilirubin Urine Urobilinogen Ur Leukocyte Esterase Urine RBC Urine WBC Ur Squamous Epith Cells Ur Transition Epith Cell Ur Renal Epithelial Cell Calcium Oxalate Crystal Uric Acid Crystals Triple Phos Crystals Other Crystals Amorphous Sediment Urine Bacteria Hyaline Casts Fine Granular Casts Coarse Granular Casts Waxy Casts RBC Casts WBC Casts Urine Mucus Urine Trichomonas Urine Yeast 12/31/17 05:18 WBC RBC Hgb Hct MCV MCH MCHC RDW RDW Differential Plt Count MPV Immature Gran % (Auto) Neut % (Auto) Lymph % (Auto) [place] % (Auto) Eos % (Auto) Baso % (Auto) Absolute Neuts (auto) Absolute Lymphs (auto) Total Counted PT INR APTT 77.1 H Sodium Potassium Chloride Carbon Dioxide Anion Gap BUN Creatinine Estim Creat Clear Calc Est GFR (MDRD) Af Amer Est GFR (MDRD) Non-Af BUN/Creatinine Ratio Glucose Calcium Urine Color Urine Clarity Urine pH Ur Specific [place] U Specif Grav (Refrac) Urine Protein Urine Glucose (UA) Urine Ketones Urine Occult Blood Urine Nitrite Urine Bilirubin Urine Urobilinogen Ur Leukocyte Esterase Urine RBC Urine WBC Ur Squamous Epith Cells Ur Transition Epith Cell Ur Renal Epithelial Cell Calcium Oxalate Crystal Uric Acid Crystals Triple Phos Crystals Other Crystals Amorphous Sediment Urine Bacteria Hyaline Casts Fine Granular Casts Coarse Granular Casts Waxy Casts RBC Casts WBC Casts Urine Mucus Urine Trichomonas Urine Yeast Diagnostic Data Abdomen/Pelvis CT 12/30/17 18:54 IMPRESSION: There are no acute bowel abnormalities. There is diverticulosis of the distal colon. There is no ascites, free air or significant lymphadenopathy. The urinary bladder is small and decompressed with marked wall thickening. Cystitis cannot be excluded. There is inflammation in the upper right leg after right femur surgery. Hardware is present in the proximal right femur. There is marked displacement of the lesser trochanter, and a metastatic lesion in this location cannot be excluded. There is a moderate compression fracture of L1 which appears acute or subacute. There is minimal retropulsion of bone at this level without significant canal narrowing. Electronically Signed: Ruchi Robles MD at 21:22 EDT Tel Direct: [phone], Service support , Chest CT 12/30/17 18:54 IMPRESSION: There are no acute abnormalities in the chest. There is marked motion artifact which precludes adequate visualization of the lungs. There is evidence of minimal atelectasis in the posterior segments of both lower lobes and anterior segment of the right upper lobe. There is no obvious consolidation. There is no pleural effusion or significant lymphadenopathy. There is no evidence of pulmonary embolism in the main pulmonary arteries. There is mild cardiomegaly. Electronically Signed: Ruchi Robles MD at 20:32 EDT Tel Direct: [phone], Service support , vascular surgery Operations: None Procedures: None Summary of Care Provided: The patient is a 82 year old M with a history of atrial fibrillation on chronic anticoagulant with warfarin who was admitted with a complaint of right lower extremity swelling and pain. He had recently sustained a right proximal femoral fracture after a fall and subsequently underwent ORIF. Coumadin was held at time of surgery perioperatively; it was unclear for how many days that was held and with that he was bridged. Coumadin was resumed 2 days afterwards. He was discharged to acute rehab was unable to partake in required physical therapy. Was then noted that he had a 2 week history of swelling of his right lower extremity with assisted discomfort and heaviness. Outpatient ultrasound done showed very extensive DVT extending from the common femoral down to the cough and leg veins. INR was noted to be 2 and patient had been compliant with Coumadin. Patient was admitted and managed for acute provoked DVT despite therapeutic INR. Vascular surgery was consulted. CT of the abdomen chest and pelvis done was negative for any malignancy which could be contributory to the DVT. Per discussion with vascular surgery, it could not clearly be stated that patient had DVT on account of Coumadin failure as he probably may have gone about a week or so without being anticoagulated, from times when Coumadin was stopped before surgery and was also given plasma to reverse Coumadin effect prior to surgery. Coumadin was then resumed later and it is not clear whether he was bridged with Lovenox. Patient was discharged home on 12/31/2017 on p.o. Xarelto 50 mg twice daily for 15 days, stop date of which will be 01/20/2018. He is then to start p.o. Xarelto 20 mg daily indefinitely started on 01/21/2018. He is also to go on daily compression stockings which are thigh-high and about 20-30 mmHg. He is also to have daily STACEY stockings. He is to follow-up with his primary care doctor and with vascular surgery in 4-6 weeks when a repeat right lower extremity venous ultrasound will be done and further management will be decided then by vascular surgery. Giselle stated that on admission, there was a concern for some parkinsonism on account of extensive weakness and dementia. Patient is also to follow-up with neurology on outpatient basis to assess if he has Parkinson's or not. Patient seen and examined prior to discharge. He had no complaints and pain was well controlled. He denied any chest pain, shortness of breath, abdominal pain, diarrhea vomiting. Review of systems is otherwise negative. o/e: Vital Signs Height 6 ft Weight: 210 lb 12.191 oz Weight in Pounds 210.8 lbs Pulse Ox 95 Temperature 98.2 F Pulse Rate 81 Respiratory Rate 18 Blood Pressure 90/60 Blood Pressure Position Sitting []General: Alert, Oriented x3, Cooperative, No apparent distress HEENT: Atraumatic, PERRLA, EOMI, Normocephalic Oral: Moist Mucosa Neck: Supple, No JVD, Negative Carotid Bruits Lungs: Clear to auscultation, Normal air movement, No rhonchi, No wheeze, No rales Cardiovascular: Regular rate, Regular Rhythm, Normal S1, Normal S2, No murmurs Abdomen: Bowel Sounds Present, Soft, Non Tender, Non-Distended, No Hepato-splenomegaly Extremities: - - both LEs in STACEY hoses. RLE swollen, tender and warm to touch. Skin: No rashes, No breakdown Musculoskeletal: No Tenderness to Palpation of Joints or Extremities. Both LEs in STACEY stockings Lymphatic: No Cervical, Supraclavicular, or Inguinal Adenopathy Neurological: Cranial nerves II-XII grossly intact, Neuro grossly intact Psych/Mental Status: Normal Affect, Appropriate, - - alert and oriented to person and place Plan as stated above. Is been discharged to his residential today. Discharge Diet: 2000 mg Sodium Diet Discharge Activity: Return to Normal Activity Weight Bearing Status: Weight bearing as tolerated Call your doctor if you observe: Shortness of breath, Calf discomfort, Uncontrolled pain Home Medications: Medications to take at Discharge Albuterol IH (ProAir) [Proair Hfa] 2 inh INHALATION Q4H PRN PRN 12/29/17 Aspirin [Aspirin, Baby] 81 mg PO DAILY 12/29/17 Azelastine HCl [Astelin] 1 spray NASAL PRN PRN 12/29/17 Bumetanide [Bumex] 1 mg PO DAILY 12/29/17 Clotrimazole/Betamethasone [Lotrisone] 1 applic TOPICAL PRN PRN 12/29/17 Diltiazem [Cardizem] 60 mg PO BID 12/29/17 Docusate Sodium [Colace] 100 mg PO DAILY 12/29/17 Gabapentin [Neurontin] 100 mg PO TIDCM 12/29/17 Hydrocodone/Acetaminophen [[place] 10-325 Tablet] 1 each PO Q6H PRN PRN 12/29/17 Lansoprazole 30 mg PO DAILY 12/29/17 Melatonin/Pyridoxine HCl (B6) [Melatonin 1 mg Tablet] 1 tab PO QHS 12/29/17 Metformin HCl 500 mg PO DAILY 12/29/17 Metoprolol Tartrate [Lopressor (beta amna)] 50 mg PO BID 12/29/17 Omega3/Dha/Epa/Fish Oil/Vit D3 [Fish Oil-Vit D3 Softgel] 1 capsule PO DAILY 12/29/17 Polyethylene Glycol 3350 [Miralax] 17 gm PO DAILY 12/29/17 Simvastatin [Zocor] 20 mg PO DAILY 12/29/17 Warfarin Sodium [Warfarin Sodium] 4.5 mg PO ESPANA 12/29/17 Compr.stocking,Thigh,Reg,Large [Compression Thigh Stocking] 1 ea MC DAILY #5 ea 12/31/17 Rivaroxaban [Xarelto] 15 mg PO BIDCM #42 tab 12/31/17 Rivaroxaban [Xarelto] 20 mg PO DAILY #30 tab 12/31/17 Following Prescrptions Were Given to Patient: Compr.stocking,Thigh,Reg,Large [Compression Thigh Stocking] 1 ea MC DAILY #5 ea Rivaroxaban [Xarelto] 20 mg PO DAILY #30 tab Rivaroxaban [Xarelto] 15 mg PO BIDCM #42 tab Other Amb Orders: Thigh High Stacey Hose Location: None Selected Primary Care Physician: [facility] Doctor,Out of [NON-STAFF] - Please follow up with your Primary Care Physician in: one week Please Follow Up With: Curtis Bridges MD When: 4-6 weeks Please Follow Up With: Nicole Fuentes MD When: 1-2 weeks Disposition: [facility] facility Minutes spent on discharge:: 45 Patient Condition:: Stable Medical Necessity - Tobacco Use Smoking Status: Former smoker Tobacco Use: Cigars, Pipe Meaningful Use Info Meaningful Use Diagnoses (Choose all that apply): VTE - VTE Anticoag overlap given w/in hospital stay or rx'd at dc?: Yes Pt receive overlap for 5 days?: No Reason overlap not ordered, prescribed, or given for 5 days: Treatment Not Indicated - discharged on xarelto Code Visit Inpatient E&M: 48972 Disch Hosp
--- NOTE | 2017-12-31 12:49 | DS.PCM_ITS ---
Discharge Date and Diagnosis Date of Admission: 12/29/17 Date of Discharge: 12/31/17 - Primary Discharge Diagnosis Active and Suspected Problems (Last Updated 12/29/17 @ 19:30 by Jose Peguero MD) Right leg DVT (Acute) Hospital Course and Treatment Imaging Results: Laboratory Tests 12/29/17 12/29/17 12/29/17 15:38 15:38 15:38 WBC 6.5 RBC 3.23 L Hgb 10.5 L Hct 33.1 L MCV 102.5 H MCH 32.5 H MCHC 31.7 L RDW 13.6 RDW Differential 50.9 H Plt Count 203 MPV 8.8 Immature Gran % (Auto) 0.300 Neut % (Auto) 58.9 Lymph % (Auto) 27.1 Barnes % (Auto) 11.2 H Eos % (Auto) 2.3 Baso % (Auto) 0.2 Absolute Neuts (auto) 3.9 Absolute Lymphs (auto) 1.77 Total Counted Not Reportable PT 22.8 H INR 2.0 APTT Sodium 140 Potassium 3.8 Chloride 102 Carbon Dioxide 33.0 H Anion Gap 5 BUN 16 Creatinine 0.90 Estim Creat Clear Calc 70.65 Est GFR (MDRD) Af Amer 104 Est GFR (MDRD) Non-Af 86 BUN/Creatinine Ratio 17.8 Glucose 123 H Calcium 8.7 Urine Color Urine Clarity Urine pH Ur Specific [place] U Specif Grav (Refrac) Urine Protein Urine Glucose (UA) Urine Ketones Urine Occult Blood Urine Nitrite Urine Bilirubin Urine Urobilinogen Ur Leukocyte Esterase Urine RBC Urine WBC Ur Squamous Epith Cells Ur Transition Epith Cell Ur Renal Epithelial Cell Calcium Oxalate Crystal Uric Acid Crystals Triple Phos Crystals Other Crystals Amorphous Sediment Urine Bacteria Hyaline Casts Fine Granular Casts Coarse Granular Casts Waxy Casts RBC Casts WBC Casts Urine Mucus Urine Trichomonas Urine Yeast 12/29/17 12/30/17 12/30/17 15:38 01:04 05:40 WBC RBC Hgb Hct MCV MCH MCHC RDW RDW Differential Plt Count MPV Immature Gran % (Auto) Neut % (Auto) Lymph % (Auto) Barnes % (Auto) Eos % (Auto) Baso % (Auto) Absolute Neuts (auto) Absolute Lymphs (auto) Total Counted PT INR APTT 39.9 H 206.6 H* Sodium Potassium Chloride Carbon Dioxide Anion Gap BUN Creatinine Estim Creat Clear Calc Est GFR (MDRD) Af Amer Est GFR (MDRD) Non-Af BUN/Creatinine Ratio Glucose Calcium Urine Color Yellow Urine Clarity Cloudy Urine pH 6.5 Ur Specific [place] 1.015 U Specif Grav (Refrac) Urine Protein 15 H Urine Glucose (UA) Normal Urine Ketones 5 H Urine Occult Blood 10 H Urine Nitrite Negative Urine Bilirubin Negative Urine Urobilinogen 4 H Ur Leukocyte Esterase 500 H Urine RBC 0 SEEN Urine WBC 10-25 SEEN Ur Squamous Epith Cells 0 SEEN Ur Transition Epith Cell Ur Renal Epithelial Cell Calcium Oxalate Crystal Uric Acid Crystals Triple Phos Crystals Other Crystals Amorphous Sediment Urine Bacteria 3+ Hyaline Casts Fine Granular Casts Coarse Granular Casts Waxy Casts RBC Casts WBC Casts Urine Mucus 0 SEEN Urine Trichomonas Urine Yeast 12/30/17 12/30/17 12/30/17 05:40 07:10 07:10 WBC 6.7 RBC 2.90 L Hgb 9.5 L Hct 29.6 L MCV 102.1 H MCH 32.8 H MCHC 32.1 RDW 13.3 RDW Differential 50.0 H Plt Count 185 MPV 8.9 Immature Gran % (Auto) 0.300 Neut % (Auto) 66.7 Lymph % (Auto) 24.2 Barnes % (Auto) 7.4 Eos % (Auto) 1.0 Baso % (Auto) 0.4 Absolute Neuts (auto) 4.5 Absolute Lymphs (auto) 1.63 Total Counted Not Reportable PT INR APTT 85.1 H Sodium Potassium Chloride Carbon Dioxide Anion Gap BUN Creatinine Estim Creat Clear Calc Est GFR (MDRD) Af Amer Est GFR (MDRD) Non-Af BUN/Creatinine Ratio Glucose Calcium Urine Color Cancelled Urine Clarity Cancelled Urine pH Cancelled Ur Specific [place] Cancelled U Specif Grav (Refrac) Cancelled Urine Protein Cancelled Urine Glucose (UA) Cancelled Urine Ketones Cancelled Urine Occult Blood Cancelled Urine Nitrite Cancelled Urine Bilirubin Cancelled Urine Urobilinogen Cancelled Ur Leukocyte Esterase Cancelled Urine RBC Cancelled Urine WBC Cancelled Ur Squamous Epith Cells Cancelled Ur Transition Epith Cell Cancelled Ur Renal Epithelial Cell Cancelled Calcium Oxalate Crystal Cancelled Uric Acid Crystals Cancelled Triple Phos Crystals Cancelled Other Crystals Cancelled Amorphous Sediment Cancelled Urine Bacteria Cancelled Hyaline Casts Cancelled Fine Granular Casts Cancelled Coarse Granular Casts Cancelled Waxy Casts Cancelled RBC Casts Cancelled WBC Casts Cancelled Urine Mucus Cancelled Urine Trichomonas Cancelled Urine Yeast Cancelled 12/30/17 12/30/17 12/30/17 07:10 07:10 15:50 WBC RBC Hgb Hct MCV MCH MCHC RDW RDW Differential Plt Count MPV Immature Gran % (Auto) Neut % (Auto) Lymph % (Auto) Barnes % (Auto) Eos % (Auto) Baso % (Auto) Absolute Neuts (auto) Absolute Lymphs (auto) Total Counted PT 22.8 H INR 2.0 APTT 73.8 H Sodium 142 Potassium 3.6 Chloride 106 Carbon Dioxide 32.0 Anion Gap 4 L BUN 16 Creatinine 0.83 Estim Creat Clear Calc 76.61 Est GFR (MDRD) Af Amer 114 Est GFR (MDRD) Non-Af 94 BUN/Creatinine Ratio 19.3 Glucose 155 H Calcium 8.3 L Urine Color Urine Clarity Urine pH Ur Specific [place] U Specif Grav (Refrac) Urine Protein Urine Glucose (UA) Urine Ketones Urine Occult Blood Urine Nitrite Urine Bilirubin Urine Urobilinogen Ur Leukocyte Esterase Urine RBC Urine WBC Ur Squamous Epith Cells Ur Transition Epith Cell Ur Renal Epithelial Cell Calcium Oxalate Crystal Uric Acid Crystals Triple Phos Crystals Other Crystals Amorphous Sediment Urine Bacteria Hyaline Casts Fine Granular Casts Coarse Granular Casts Waxy Casts RBC Casts WBC Casts Urine Mucus Urine Trichomonas Urine Yeast 12/30/17 12/31/17 12/31/17 22:47 05:18 05:18 WBC 7.2 RBC 2.98 L Hgb 9.7 L Hct 31.1 L MCV 104.4 H MCH 32.6 H MCHC 31.2 L RDW 12.9 RDW Differential 47.8 H Plt Count 214 MPV 9.0 Immature Gran % (Auto) 0.400 Neut % (Auto) 49.4 Lymph % (Auto) 37.4 Barnes % (Auto) 10.3 H Eos % (Auto) 1.9 Baso % (Auto) 0.6 Absolute Neuts (auto) 3.6 Absolute Lymphs (auto) 2.69 Total Counted Not Reportable PT INR APTT 83.0 H Sodium 144 Potassium 4.0 Chloride 106 Carbon Dioxide 31.0 Anion Gap 7 BUN 16 Creatinine 0.81 Estim Creat Clear Calc 78.50 Est GFR (MDRD) Af Amer 118 Est GFR (MDRD) Non-Af 97 BUN/Creatinine Ratio 19.8 Glucose 97 Calcium 8.4 L Urine Color Urine Clarity Urine pH Ur Specific [place] U Specif Grav (Refrac) Urine Protein Urine Glucose (UA) Urine Ketones Urine Occult Blood Urine Nitrite Urine Bilirubin Urine Urobilinogen Ur Leukocyte Esterase Urine RBC Urine WBC Ur Squamous Epith Cells Ur Transition Epith Cell Ur Renal Epithelial Cell Calcium Oxalate Crystal Uric Acid Crystals Triple Phos Crystals Other Crystals Amorphous Sediment Urine Bacteria Hyaline Casts Fine Granular Casts Coarse Granular Casts Waxy Casts RBC Casts WBC Casts Urine Mucus Urine Trichomonas Urine Yeast 12/31/17 05:18 WBC RBC Hgb Hct MCV MCH MCHC RDW RDW Differential Plt Count MPV Immature Gran % (Auto) Neut % (Auto) Lymph % (Auto) Barnes % (Auto) Eos % (Auto) Baso % (Auto) Absolute Neuts (auto) Absolute Lymphs (auto) Total Counted PT INR APTT 77.1 H Sodium Potassium Chloride Carbon Dioxide Anion Gap BUN Creatinine Estim Creat Clear Calc Est GFR (MDRD) Af Amer Est GFR (MDRD) Non-Af BUN/Creatinine Ratio Glucose Calcium Urine Color Urine Clarity Urine pH Ur Specific [place] U Specif Grav (Refrac) Urine Protein Urine Glucose (UA) Urine Ketones Urine Occult Blood Urine Nitrite Urine Bilirubin Urine Urobilinogen Ur Leukocyte Esterase Urine RBC Urine WBC Ur Squamous Epith Cells Ur Transition Epith Cell Ur Renal Epithelial Cell Calcium Oxalate Crystal Uric Acid Crystals Triple Phos Crystals Other Crystals Amorphous Sediment Urine Bacteria Hyaline Casts Fine Granular Casts Coarse Granular Casts Waxy Casts RBC Casts WBC Casts Urine Mucus Urine Trichomonas Urine Yeast Diagnostic Data Abdomen/Pelvis CT 12/30/17 18:54 IMPRESSION: There are no acute bowel abnormalities. There is diverticulosis of the distal colon. There is no ascites, free air or significant lymphadenopathy. The urinary bladder is small and decompressed with marked wall thickening. Cystitis cannot be excluded. There is inflammation in the upper right leg after right femur surgery. Hardware is present in the proximal right femur. There is marked displacement of the lesser trochanter, and a metastatic lesion in this location cannot be excluded. There is a moderate compression fracture of L1 which appears acute or subacute. There is minimal retropulsion of bone at this level without significant canal narrowing. Electronically Signed: Ruchi Robles MD at 21:22 EDT Tel Direct: [phone], Service support , Chest CT 12/30/17 18:54 IMPRESSION: There are no acute abnormalities in the chest. There is marked motion artifact which precludes adequate visualization of the lungs. There is evidence of minimal atelectasis in the posterior segments of both lower lobes and anterior segment of the right upper lobe. There is no obvious consolidation. There is no pleural effusion or significant lymphadenopathy. There is no evidence of pulmonary embolism in the main pulmonary arteries. There is mild cardiomegaly. Electronically Signed: Ruchi Robles MD at 20:32 EDT Tel Direct: [phone], Service support , vascular surgery Operations: None Procedures: None Summary of Care Provided: The patient is a 82 year old M with a history of atrial fibrillation on chronic anticoagulant with warfarin who was admitted with a complaint of right lower extremity swelling and pain. He had recently sustained a right proximal femoral fracture after a fall and subsequently underwent ORIF. Coumadin was held at time of surgery perioperatively; it was unclear for how many days that was held and with that he was bridged. Coumadin was resumed 2 days afterwards. He was discharged to acute rehab was unable to partake in required physical therapy. Was then noted that he had a 2 week history of swelling of his right lower extremity with assisted discomfort and heaviness. Outpatient ultrasound done showed very extensive DVT extending from the common femoral down to the cough and leg veins. INR was noted to be 2 and patient had been compliant with Coumadin. Patient was admitted and managed for acute provoked DVT despite therapeutic INR. Vascular surgery was consulted. CT of the abdomen chest and pelvis done was negative for any malignancy which could be contributory to the DVT. Per discussion with vascular surgery, it could not clearly be stated that patient had DVT on account of Coumadin failure as he probably may have gone about a week or so without being anticoagulated, from times when Coumadin was stopped before surgery and was also given plasma to reverse Coumadin effect prior to surgery. Coumadin was then resumed later and it is not clear whether he was bridged with Lovenox. Patient was discharged home on 12/31/2017 on p.o. Xarelto 50 mg twice daily for 15 days, stop date of which will be 01/20/2018. He is then to start p.o. Xarelto 20 mg daily indefinitely started on 01/21/2018. He is also to go on daily compression stockings which are thigh-high and about 20-30 mmHg. He is also to have daily STACEY stockings. He is to follow-up with his primary care doctor and with vascular surgery in 4-6 weeks when a repeat right lower extremity venous ultrasound will be done and further management will be decided then by vascular surgery. Giselle stated that on admission, there was a concern for some parkinsonism on account of extensive weakness and dementia. Patient is also to follow-up with neurology on outpatient basis to assess if he has Parkinson's or not. Patient seen and examined prior to discharge. He had no complaints and pain was well controlled. He denied any chest pain, shortness of breath, abdominal pain, diarrhea vomiting. Review of systems is otherwise negative. o/e: Vital Signs Height 6 ft Weight: 210 lb 12.191 oz Weight in Pounds 210.8 lbs Pulse Ox 95 Temperature 98.2 F Pulse Rate 81 Respiratory Rate 18 Blood Pressure 90/60 Blood Pressure Position Sitting []General: Alert, Oriented x3, Cooperative, No apparent distress HEENT: Atraumatic, PERRLA, EOMI, Normocephalic Oral: Moist Mucosa Neck: Supple, No JVD, Negative Carotid Bruits Lungs: Clear to auscultation, Normal air movement, No rhonchi, No wheeze, No rales Cardiovascular: Regular rate, Regular Rhythm, Normal S1, Normal S2, No murmurs Abdomen: Bowel Sounds Present, Soft, Non Tender, Non-Distended, No Hepato- splenomegaly Extremities: - - both LEs in STACEY hoses. RLE swollen, tender and warm to touch. Skin: No rashes, No breakdown Musculoskeletal: No Tenderness to Palpation of Joints or Extremities. Both LEs in STACEY stockings Lymphatic: No Cervical, Supraclavicular, or Inguinal Adenopathy Neurological: Cranial nerves II-XII grossly intact, Neuro grossly intact Psych/Mental Status: Normal Affect, Appropriate, - - alert and oriented to person and place Plan as stated above. Is been discharged to his intermediate today. Discharge Diet: 2000 mg Sodium Diet Discharge Activity: Return to Normal Activity Weight Bearing Status: Weight bearing as tolerated Call your doctor if you observe: Shortness of breath, Calf discomfort, Uncontrolled pain Home Medications: Medications to take at Discharge Albuterol IH (ProAir) [Proair Hfa] 2 inh INHALATION Q4H PRN PRN 12/29/17 Aspirin [Aspirin, Baby] 81 mg PO DAILY 12/29/17 Azelastine HCl [Astelin] 1 spray NASAL PRN PRN 12/29/17 Bumetanide [Bumex] 1 mg PO DAILY 12/29/17 Clotrimazole/Betamethasone [Lotrisone] 1 applic TOPICAL PRN PRN 12/29/17 Diltiazem [Cardizem] 60 mg PO BID 12/29/17 Docusate Sodium [Colace] 100 mg PO DAILY 12/29/17 Gabapentin [Neurontin] 100 mg PO TIDCM 12/29/17 Hydrocodone/Acetaminophen [[place] 10-325 Tablet] 1 each PO Q6H PRN PRN 12/29/17 Lansoprazole 30 mg PO DAILY 12/29/17 Melatonin/Pyridoxine HCl (B6) [Melatonin 1 mg Tablet] 1 tab PO QHS 12/29/17 Metformin HCl 500 mg PO DAILY 12/29/17 Metoprolol Tartrate [Lopressor (beta amna)] 50 mg PO BID 12/29/17 Omega3/Dha/Epa/Fish Oil/Vit D3 [Fish Oil-Vit D3 Softgel] 1 capsule PO DAILY 06/17 Polyethylene Glycol 3350 [Miralax] 17 gm PO DAILY 12/29/17 Simvastatin [Zocor] 20 mg PO DAILY 12/29/17 Warfarin Sodium [Warfarin Sodium] 4.5 mg PO ESPANA 12/29/17 Compr.stocking,Thigh,Reg,Large [Compression Thigh Stocking] 1 ea MC DAILY #5 ea 12/31/17 Rivaroxaban [Xarelto] 15 mg PO BIDCM #42 tab 12/31/17 Rivaroxaban [Xarelto] 20 mg PO DAILY #30 tab 12/31/17 Following Prescrptions Were Given to Patient: Compr.stocking,Thigh,Reg,Large [Compression Thigh Stocking] 1 ea MC DAILY #5 ea Rivaroxaban [Xarelto] 20 mg PO DAILY #30 tab Rivaroxaban [Xarelto] 15 mg PO BIDCM #42 tab Other Amb Orders: Thigh High Stacey Hose Location: None Selected Primary Care Physician: [facility] Doctor,Out of [NON-STAFF] - Please follow up with your Primary Care Physician in: one week Please Follow Up With: Curtis Bridges MD When: 4-6 weeks Please Follow Up With: Nicole Fuentes MD When: 1-2 weeks Disposition: [facility] facility Minutes spent on discharge:: 45 Patient Condition:: Stable Medical Necessity - Tobacco Use Smoking Status: Former smoker Tobacco Use: Cigars, Pipe Meaningful Use Info Meaningful Use Diagnoses (Choose all that apply): VTE - VTE Anticoag overlap given w/in hospital stay or rx'd at dc?: Yes Pt receive overlap for 5 days?: No Reason overlap not ordered, prescribed, or given for 5 days: Treatment Not Indicated - discharged on xarelto Code Visit Inpatient E&M: [id number] Disch Hosp
[2017-12-31 13:28] LABS: Partial Thromboplast Time 55.3 Seconds (24.1-36.2)
--- NOTE | 2017-12-31 14:21 | CASEMGMT ---
Social Work Note Pt is being discharged to [facility] today. KJ faxed completed discharge paperwork to [facility] including transfer to extended care facility, signed medication list and scripts. Originals in SNF folder and copy on pt's chart. Pt is requesting to be transported via wheelchair van. KJ called multiple transportation companies and none had availability for wheelchair van to transport pt. KJ placed a call to Valeria at [facility] and Valeria states that [facility] are able to transport pt and can get pt in 15-20 minutes. KJ informed Valeria that pt is ready and can be transported. Pt got picked up by [facility]. Transportation form on SNF folder and copy on pt's chart. KJ updated RN Remington, reel system operator Tatiana and placed a call to pt's daughter Lubna to update her that pt is discharging today and of transportation time. [facility] is not needed as pt is from Skilled side at [facility] and returned to the skilled side. Plan: Pt to discharge to [facility] under skilled for rehabilitation with [facility] transporting pt. Shani Palomares MANAGER RADIATION, FINANCIAL AID ADVISOR
[2017-12-31] MEDS: Rivaroxaban 15 MG Tablet PO (14:34)
--- NOTE | 2017-12-31 15:04 | NURSING ---
Report called to Brenda the receiving nurse at [facility].
== END 2017-12-31 14:49 | disposition skilled nursing facility (03) | DRG 301 ==
LOC: ED 15:59 → MS3 17:40
PROVIDERS: Admitting Provider Internal Medicine; Emergency Provider Emergency Medicine; Family Provider Family Medicine; PCP Family Medicine; Visit Provider Student in an Organized Health Care Education/Training Program
DX: I82.411 Acute embolism and thrombosis of right femoral vein (principal); I82.4Z1 Acute embolism and thrombosis of unspecified deep veins of right distal lower extremity; I82.431 Acute embolism and thrombosis of right popliteal vein; G20 Parkinson's disease; R32 Unspecified urinary incontinence; I48.2 Chronic atrial fibrillation; E78.5 Hyperlipidemia, unspecified; Z79.01 Long term (current) use of anticoagulants; Z87.891 Personal history of nicotine dependence; Z79.82 Long term (current) use of aspirin; S72.91XD Unspecified fracture of right femur, subsequent encounter for closed fracture with routine healing; Z85.46 Personal history of malignant neoplasm of prostate
CPT/HCPCS: 36415; 71260; 74177; 80048; 81002; 85025; 85610; 85730; 87077; 87086; 87088; 87186; 93971; 94640; 97162; 97165; 97530; 97802; 99282; J7030; Q9967; A4216; J2405

== ENCOUNTER → 2018-02-07 14:04 | Outpatient (CLI) | payer MEDICARE, OTHER, SELFPAY ==
--- NOTE | 2018-02-07 14:07 | VDLE_ITS ---
Reason For Study: DVT (previous exam 12/29/2017) RIGHT Prox FV is partially compressible with flow noted in vessel. Mid and Distal FV compressible Gastrocs are compressible. GSV is normal. POP V is compressible, spontaneous, phasic, competent and demonstrates normal augmentation. T/P Trunk is compressible. PTV is compressible. RT PerV is compressible. Procedure Exam performed in department. 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 This is mostly wall thickening with compressibility. Ordering Physician: Curtis Bridges Referring Physician: Yoan Lynn M.D. Performed By: Anita Neff RVT, RDCS and Student
== END ==
PROVIDERS: Family Provider Family Medicine; PCP Family Medicine; Visit Provider Surgery Vascular Surgery
DX: I82.511 Chronic embolism and thrombosis of right femoral vein (principal); Z86.718 Personal history of other venous thrombosis and embolism
CPT/HCPCS: 93971